=== PATIENT | male | born 1960 | race Caucasian/White ===

== ENCOUNTER → 2018-01-14 13:16 | Outpatient (BNVA) | payer MEDICARE, MEDICAID, SELFPAY | PROVIDERS: PCP Nurse Practitioner Family; Visit Provider Psychiatry & Neurology Neurology | DX: G40.919 Epilepsy, unspecified, intractable, without status epilepticus (principal) | CPT/HCPCS: 99213 ==

== ENCOUNTER 2018-02-03 00:28 | Outpatient (CLI) | payer MEDICARE, MEDICAID, SELFPAY ==
--- NOTE | 2018-02-03 14:37 | DI.RAD_ITS ---
SYMPTOMS/DIAGNOSIS: OSTEOPOROSIS, M81.0, 2-YEAR F/U S/P STARTING RECLAST TREATMENT DEXA SCAN: DEXA scan was performed according to the usual protocol. The findings for lumbar spine scanning are a T score of -3.7. Previous scan of September 2015 showed lumbar spine T score of -4.5. The left hip scanning shows a T score of -2.6 with left femoral neck T score of -3.1. Previous scan of September 2015 showed left hip T score of -3.0. Left forearm scanning shows a T score of -2.1. Previous exam of 09/2015 showed a T score of -1.9. CONCLUSION: Findings consistent with osteoporosis according to the WHO criteria. The lateral vertebral scanogram shows no evidence of a vertebral compression fracture.
== END 2018-02-03 00:48 ==
PROVIDERS: PCP Nurse Practitioner Family; Visit Provider Nurse Practitioner Family
DX: M81.0 Age-related osteoporosis without current pathological fracture (principal); Z79.899 Other long term (current) drug therapy
CPT/HCPCS: 77080

== ENCOUNTER → 2018-05-26 13:19 | Outpatient (BNVA) | payer MEDICARE, MEDICAID, SELFPAY | PROVIDERS: PCP Nurse Practitioner Family; Visit Provider Psychiatry & Neurology Neurology | DX: G40.919 Epilepsy, unspecified, intractable, without status epilepticus (principal) | CPT/HCPCS: 99213 ==

== ENCOUNTER 2018-06-29 01:20 | Outpatient (RCR) | payer MEDICARE, MEDICAID, SELFPAY ==
[2018-06-29] MEDS: Normal Saline Flush 10 ML SYR IVP (14:17)
== END 2018-07-02 23:59 | disposition home or self-care (01) ==
LOC: INF 01:20
PROVIDERS: PCP Nurse Practitioner Family; Visit Provider Nurse Practitioner Family
DX: M81.0 Age-related osteoporosis without current pathological fracture (principal)
CPT/HCPCS: 96365; J3489

== ENCOUNTER 2018-08-19 09:44 | Outpatient (CLI) | payer MEDICARE, MEDICAID, SELFPAY ==
[2018-08-19 11:17] LABS: Hemoglobin A1C 5.5 % (4.5-6.2)
[2018-08-19 12:06] LABS: ALT 22 U/L (12-78); AST 11 U/L (15-37); Albumin 4.2 g/dL (3.4-5.0); Alkaline Phosphatase 65 U/L (46-116); Anion Gap 12.6 mmol/L (3-11); BUN 18 mg/dL (7-18); Bilirubin, Total 0.4 mg/dL (0.2-1.0); CO2 24.4 mmol/L (21.0-32.0); CREATININE 1.21 mg/dL (0.70-1.30); Chloride 105 mmol/L (98-107); Cholesterol 188 mg/dL (50-200); Glucose 105 mg/dL (70-100); HDL Cholesterol 69 mg/dL (40-60); LDL CHOLESTEROL 104 mg/dL (<100); Potassium 3.9 mmol/L (3.5-5.1); Sodium 142 mmol/L (136-145); TSH (W/Ref FT4) 3.56 uIU/mL (0.358-3.74); Total Protein 7.3 g/dL (6.4-8.2); Triglyceride 52 mg/dL (30-150)
== END 2018-08-19 10:04 ==
PROVIDERS: PCP Nurse Practitioner Family; Visit Provider Nurse Practitioner Family
DX: E03.9 Hypothyroidism, unspecified (principal); R73.01 Impaired fasting glucose; E78.5 Hyperlipidemia, unspecified; Z79.899 Other long term (current) drug therapy
CPT/HCPCS: 36415; 80053; 80061; 83721; 83036; 84443

== ENCOUNTER 2019-04-16 19:29 | Emergency (ER) | payer MEDICARE, MEDICAID, SELFPAY ==
[2019-04-16 19:35] VITALS: BP 167/78; PULSE 108; RESP 19; TEMP 37.8; O2SAT 97
[2019-04-16 19:37] VITALS: BP 122/75; PULSE 92; RESP 18; TEMP 36.6; O2SAT 97
--- NOTE | 2019-04-16 20:00 | ED.GENADUL_ITS ---
Discharge Plan Disposition Patient Disposition: HOME Condition: Fair Discharge Details Chief Complaint: PsychEval Clinical Impression: UTI (urinary tract infection) Primary Care Provider: Sis Roman ED Provider: Monica Ribera Home Meds and New Rx's Prescriptions: New sulfamethoxazole-trimethoprim [Bactrim DS] 800-160 mg tablet 1 tab PO BID Qty: 6 RF: 0 Continued albuterol sulfate 90 mcg/actuation HFA aerosol inhaler 1 - 2 puff IH Q4H PRN (Reason: shortness of breath or wheezing) Qty: 1 RF: 0 Spacer 1 unit miscellaneous .Q4-6H PRN (Reason: To use with inhaler) Qty: 1 RF: 0 lamotrigine 100 mg tablet 100 mg PO DIRECTED Qty: 270 RF: 3 zonisamide 100 mg capsule 300 mg PO HS Qty: 270 RF: 3 citalopram [Celexa] 40 MG tablet 30 mg PO DAILY RF: 0 ibuprofen 200 MG capsule 200 mg PO PRN RF: 0 acetaminophen 325 MG tablet 325 mg PO PRN PRNQty: 2 RF: 0 Buspirone HCl 5 MG tablet 5 mg PO BID RF: 0 (DME) Disposable Brief Jumbo X-Large 1 EACH misc 1 ea Miscellaneous BID Qty: 200 RF: 3 benzonatate 100 mg capsule 100 mg PO HS PRN (Reason: cough) Qty: 90 RF: 3 calcium carbonate-vitamin D3 [Calcium 500 With D] 500 mg(1,250mg) -400 unit tablet 1 tab PO DAILY Qty: 90 RF: 3 ESSENTIAL Daily 18-0.4 mg tablet 1 tab PO DAILY Qty: 90 RF: 3 levetiracetam 750 mg tablet 1,500 mg PO BID Qty: 360 RF: 3 Discharge Instructions Instructions: Sulfamethoxazole/Trimethoprim (By mouth), Urinary Tract Infection in Men (ED) Additional Instructions: Jose M has urinary tract infection. He will need to be treated with antibiotics. I would like for him to have close follow-up with his primary care at the beginning of the week. Please encourage hydration. Take the antibiotics as prescribed, please finish the prescription even if symptoms improve. If he develops new or worsening symptoms please seek care urgently once again. Referrals: Sis Roman, ESTHER [Primary Care Provider] - Discharge Data Discharge Date/Time-TO BE ENTERED AT DEPARTURE: 04/16/19 22:20 Medical Decision Making Patient brought in via [facility] mental health providers for AMS primarily manifesting as visual hallucinations per their report. Patient is confused. He does have cognitive delay at baseline per their report so it is diffuclt to know what is normal for the patinet. However, he is reporting that he sees bugs on the floor of the [place]. No known recent illness. He denies BONILLA, denies visual changes. No known fevers/chills. He denies abdmoinal pain, no known N/V/D. No known travel, no recent abx known. Did have break through seizure a few days ago, unclear if this is unusual for the patient. They do not believe he has had recent medication change or substance exposure. On exam, patient appears nontoxic. Patient does not give striaght answers to questions, is frequently talking about different topic, does discuss bugs that he sees on the floor. Lungs are clear, normal cardiac exam, abdomen is benign, no CVA tenderness. Patient has ulcers noted on the anterior and lateral tongue. Skin exam otherwise normal. No leasions to feet/palms. Plan for labs and UA. Unclear what is driving this new onset confusion. Discussed screening tests with [facility] patient and he is agreeable to this. Will include syphilis testing. Approximately half an hour after the patient arrived, his home care provider who is been with him for for the past 15 years, was able to come to the department. He advised that the flight of ideas is typical for the patient and that at baseline, they are unable to hold a normal conversation with him. He reports that the wounds on the tongue that appear to be ulcerations are likely associated with seizures she had in the past disease but his tongue multiple times. He does report that the patient had breakthrough seizure a few days ago and that this was worse than his typical seizures. They have not noted the patient to be ill. No fevers or chills. Reports that symptoms began mildly yesterday slight increase in confusion and seeing bugs with symptoms maximizing today. Reports that the patient has appeared slightly off balance has been more animated than typical. Hallucinations are new. Patient is picking frequently at things, I am concerned that he will not tolerate an IV without sedation which I do not think is needed at this point. Plan for straight stick and UA. Do not feel that imaging is necessary at this point. Labs reviewed. Leukocytosis with WBC of 14.59. Lactate normal. TSH normal. Patient is nitrite positive, many bacteria. Likely the UTI is driving the leukocytosis and confusion. Patient denies dysurea but it is unclear if he is able to express this at baseline. Patient is eating and drinking here. Patient does reside with home care providers. He is taking oral intake well and appears nontoxic. He has no CVA tenderness on exam. Discussed disposition at length with patients home care provider. We discussed +/- of inpatient treatment. As he is nontoxic at this time, I feel that outpatient treatment is possible. I am concerned that inpatient treatment may exacerbate his underlying disorders and home care provider agrees with this. Home care provider agrees with outpatient management at this point with strict return precautions and close f/u. Patient will be started on oral Bactrim. Given strict return precautions. All of their questions and concerns were addressed in agreement this plan. HPI General Mode of arrival: ambulatory . Date/Time Provider Initiated Documentation: 04/16/19 19:30 . Limitations to Documentation: altered mental status . Information obtained by: patient, RN/MD (mental health providers with patient) and RN notes reviewed . HPI Narrative: Patient is a 58 year old male with hx of encephalopathy, UTI, epilepsy, hypothyroidism, hyperlipidemia, CP, brought in by [facility] mental health providers, with c/c of AMS with visual hallucinations. States that they were called today by home care providers when the patients was not acting as he typically does. Neither of the mental health providers have met the patient prior to this evening but they state that at home he was seeing bugs that are not present and has had increased confusion. They report he had a break through seizure a few days ago. Patient denies pain. History is very limited based on patients current mental status. Related Data Home Medications Medication Instructions Recorded Confirmed citalopram [Celexa] 30 mg PO DAILY tab-cap 07/14/12 04/17/19 ibuprofen 200 mg PO PRN 07/14/12 04/17/19 acetaminophen 325 mg PO PRN PRN #2 05/26/13 04/17/19 Buspirone HCl 5 mg PO BID tab-cap 06/13/17 10/30/18 Disposable Brief Adriel MontesLarge #200 ea 12/12/17 10/30/18 lamotrigine 100 mg tablet 100 mg PO DIRECTED #270 tab 01/14/18 04/17/19 zonisamide 100 mg capsule 300 mg PO HS #270 cap 05/26/18 04/17/19 Spacer 1 unit MISCELLANEOUS .Q4-6H PRN #1 10/30/18 10/30/18 unit albuterol sulfate 90 mcg/actuation 1 - 2 puff IH Q4H PRN #1 device 10/30/18 04/17/19 aerosol inhaler benzonatate 100 mg capsule 100 mg PO HS PRN #90 tab-cap 12/17/18 04/17/19 calcium carbonate 500 mg (1,250 1 tab PO DAILY #90 tab-cap 12/17/18 04/17/19 mg)-vitamin D3 400 unit tablet levetiracetam 750 mg tablet 1,500 mg PO BID #360 tab 01/20/19 04/17/19 lcriyqxbgxal-Ih-vjkd-minerals 18 1 tab PO DAILY #90 tab-cap 01/20/19 04/17/19 mg-0.4 mg tablet sulfamethoxazole-trimethoprim 1 tab PO BID #6 tab 04/16/19 04/17/19 [Bactrim DS] Previous Rx's Medication Instructions Recorded Disposable Brief Adriel Adan #200 ea 12/12/17 lamotrigine 100 mg tablet 100 mg PO DIRECTED #270 tab 01/14/18 zonisamide 100 mg capsule 300 mg PO HS #270 cap 05/26/18 Spacer 1 unit MISCELLANEOUS .Q4-6H PRN #1 10/30/18 unit albuterol sulfate 90 mcg/actuation 1 - 2 puff IH Q4H PRN #1 device 10/30/18 aerosol inhaler benzonatate 100 mg capsule 100 mg PO HS PRN #90 tab-cap 12/17/18 calcium carbonate 500 mg (1,250 1 tab PO DAILY #90 tab-cap 12/17/18 mg)-vitamin D3 400 unit tablet levetiracetam 750 mg tablet 1,500 mg PO BID #360 tab 01/20/19 xztwlydokvmj-Sq-gtkr-minerals 18 1 tab PO DAILY #90 tab-cap 01/20/19 mg-0.4 mg tablet sulfamethoxazole-trimethoprim 1 tab PO BID #6 tab 04/16/19 [Bactrim DS] Allergies Allergy/AdvReac Type Severity Reaction Status Date / Time Penicillins Allergy Mild Unverified 04/17/19 08:11 pseudoephedrine Allergy Mild Unverified 04/17/19 08:11 PHENOBARBITOL Allergy Intermediate PT. GETS Uncoded 04/17/19 08:11 AGITATED General Stated Complaint: PsychEval KARENA: 2 Review of Systems Unobtainable due to mental status [facility] Social History Smoking/Tobacco Use Status: Never Alcohol Intake: never Drug use: Never Substance use type: does not use Caregiver/Support person: Yes (Mane) Household members: other Details: Caregiver, caregiver's , daughter, grandchild Pets and animals: Yes Pets and animals: dog(s) What type of physical activity do you participate in: other Details: Stairs Frequency: daily Seatbelt use: always Water heater temp set <120 deg: Yes Working smoke detector in home: Yes Fire extinguisher in home: Yes Carbon monox detector in home: Yes Firearms in home: No Do you feel safe at home: Yes Do you feel safe in your relationship?: Yes Additional Social history: He is on disability. He lives with his caregiver Milena Presley (Zanna) (since early ? longer?). Shipyard Helper is Denis Melara. No smoking, ETOH, or illicit drug use. Exam Const General: cooperative, healthy appearing (appears nontoxic), comfortable and no acute distress Nutritional Appearance: average body habitus and well nourished Orientation: alert, awake and confused [facility] Head: normal to inspection, normocephalic and atraumatic Ears: hearing grossly normal bilaterally, external ears normal and TM's normal bilaterally General nose exam: external nose normal and nares normal Face and sinus: normal facial exam, sinuses nontender and face symmetric Mouth: oral mucosae normal, lip normal, tongue normal, oropharynx normal and moist mucous membranes Teeth and gingiva: dentition normal Throat: posterior oropharynx normal, tonsils normal and uvula midline Eyes General: appearance normal, both eyes and all related structures Neck Neck: normal visual inspection, full ROM, no lymphadenopathy and no meningeal signs Resp Effort & Inspection: normal respiratory effort, able to speak in complete sentences and no respiratory distress Auscultation: clear to auscultation bilaterally, no rales, no rhonchi and no wheezes Cardio Rate: regular rate Rhythm: regular rhythm Heart Sounds: S1 normal and S2 normal GI Inspection: normal to inspection Palpation: soft and nontender Back/Spine/Pelvis Back: no CVA tenderness Skin General skin exam: no rashes or lesions noted Neuro General: alert, awake, no meningeal signs and no focal motor deficits Speech: speech normal Gait: normal gait Psych Appearance: grossly normal and well kempt Mental Status: other (patient is confused) Mood: congruent mood and other (patient is confused) Affect: normal affect Attitude: cooperative Thought Process: flight of ideas and illogical Thought Content: hallucinations visual (bugs on the floor) Insight: poor Judgment: poor Course Vital Signs Vital signs: Vital Signs Temperature 37.8 C H 04/16/19 19:35 Pulse 108 H 04/16/19 19:35 Respiratory Rate 19 04/16/19 19:35 Blood Pressure 167/78 H 04/16/19 19:35 Pulse Oximetry 97 04/16/19 19:35 Temperature 37.8 C H 04/16/19 19:35 Pulse 108 H 04/16/19 19:35 Respiratory Rate 19 04/16/19 19:35 Blood Pressure 167/78 H 04/16/19 19:35 Blood Pressure Position Sitting 04/16/19 19:35 Pulse Oximetry 97 04/16/19 19:35 Oxygen Delivery Method Room Air 04/16/19 19:35 Oxygen Flow Rate 0 04/16/19 19:35 Pain Level 0 04/16/19 19:35
[2019-04-16 20:24] LABS: Abs Immature Grans 0.03 k/cumm (0.0-0.09); Absolute Eosinophil Count 0.09 k/cumm (0.0-0.7); Absolute Lymphocyte Count 2.64 k/cumm (1.2-3.4); Absolute Monocyte Count 1.33 k/cumm (0.11-0.7); Basophils % 0.3; Eosinophils % 0.6; HCT 39.6 % (40.0-50.0); HGB 13.4 g/dL (13.5-17.5); Immature Grans % 0.2; Lymphocytes % 18.1; Mean Corp. HGB Concentration 33.8 g/dL (32.0-36.0); Mean Corpuscular Hemoglobin 29.1 pg (27.0-33.0); Mean Corpuscular Volume 86.1 fL (80-95); Mean Platelet Volume 8.8 fL (8.0-11.0); Monocytes % 9.1; Neutrophils % 71.7; Platelet Count 441 x1000/uL (130-400); RBC Distribution Width 13.7 % (11.8-14.1); White Blood Cell Count 14.59 k/cumm (4.4-10.8)
[2019-04-16 20:25] LABS: Absolute Basophil Count 0.04 k/cumm (0.0-0.2); Absolute Neutrophil Count 10.46 k/cumm (1.2-6.7)
[2019-04-16 20:46] LABS: ALT 27 U/L (16-63); AST 27 U/L (15-37); Albumin 4.4 g/dL (3.4-5.0); Alkaline Phosphatase 70 U/L (46-116); Anion Gap 8.6 mmol/L (3-11); BUN 21 mg/dL (7-18); Bilirubin, Total 0.6 mg/dL (0.2-1.0); CO2 23.4 mmol/L (21.0-32.0); CREATININE 1.22 mg/dL (0.70-1.30); Calcium 9.5 mg/dL (8.5-10.1); Chloride 98 mmol/L (98-107); Glucose 148 mg/dL (74-106); Potassium 3.3 mmol/L (3.5-5.1); Sodium 130 mmol/L (136-145); TSH 1.37 uIU/mL (0.36-3.74); Total Protein 7.6 g/dL (6.4-8.2)
[2019-04-16 21:06] LABS: Salicylate < 2.8 mg/dL (2.8-20.0)
[2019-04-16 21:07] LABS: Acetaminophen < 2 ug/mL (10-30)
[2019-04-16 21:20] LABS: ETHANOL BLOOD < 3.0 mg/dL (<3)
[2019-04-16 21:25] LABS: Bilirubin Negative (Negative); Blood Moderate (Negative); Clarity Sl Cloudy (Clear); Glucose Negative (Negative); Ketones 40 mg/dL (Negative); Leukocyte Esterase Trace (Negative); Nitrite Positive (Negative); Specific Gravity >= 1.030 (1.005-1.025); Urobilinogen 0.2 EU/dL (Up TO 0.2)
[2019-04-16 21:25] LABS: Lactate 1.1 mmol/L (0.6-1.4)
[2019-04-16 21:39] LABS: Bacteria Many HPF (Negative); Crystals Many Calcium Oxalate HPF (Negative); Epithelial Cells Negative HPF (Negative); Mucus Negative (Negative); RBC 0-2 HPF (0-2); WBC 20-50 HPF (0-5)
[2019-04-16 21:40] LABS: C & S Indicated? Yes; Casts Negative LPF (Negative)
[2019-04-16 21:42] LABS: *AMPHETAMINES SCREEN URINE Negative (Negative); *BARBITURATES SCREEN URINE Negative (Negative); *BENZODIAZEPINES SCREEN URINE Negative (Negative); Cannabinoids THC Negative (Negative); Cocaine Screen,Urine Negative (Negative); METHADONE URINE SCREEN Negative (Negative); OPIATES URINE SCREEN Negative (Negative)
[2019-04-16 21:44] LABS: Tricyclic Antidepressants Negative (Negative)
[2019-04-19 10:43] LABS: Syphilis Serology (RPR) Negative (Negative)
== END 2019-04-16 22:20 | disposition home or self-care (01) ==
PROVIDERS: Emergency Provider Physician Assistant; PCP Nurse Practitioner Family
DX: N39.0 Urinary tract infection, site not specified (principal); B96.1 Klebsiella pneumoniae [K. pneumoniae] as the cause of diseases classified elsewhere
CPT/HCPCS: 36415; 80053; 80307; 87077; 99283; 80320; 80329; 81003; 81015; 83605; 84443; 85025; 86592; 87086; 87186

== ENCOUNTER 2019-04-17 08:02 | Observation (INO) | payer MEDICARE, MEDICAID, SELFPAY ==
[2019-04-17] VITALS (18 sets, daily range): BP systolic 124–134; BP diastolic 36–89; PULSE 71–113; RESP 13–25; TEMP 36.9–37.8; O2SAT 91–99
--- NOTE | 2019-04-17 08:30 | ED.GENADUL_ITS ---
Discharge Plan Disposition Patient Disposition: [facility] INPATIENT Condition: Stable Discharge Details Chief Complaint: GenMedical Clinical Impression: Hallucinations, UTI (urinary tract infection), Fever, Gait instability Admit Date/Time: 04/17/19 11:00 Admit Provider: Vineet Obrien Attending Provider: Vineet Obrien Primary Care Provider: Sis Roman ED Provider: Raysa Lopez Discharge Data Discharge Date/Time-TO BE ENTERED AT DEPARTURE: 04/17/19 11:50 Medical Decision Making 0815 -- 58yo M w/ a h/o developmental delay and cerebral palsy here yesterday in the ED for hallucinations and diagnosed with UTI and sent home with bactrim presents with worsening hallucinations and increasing unsteadiness. Caregiver states that her who brought patient in last night was offered admission but preferred to take him home at that time. She is stating she thinks he needs admission today. Oral temp on arrival 100. Rectal temp 99.9. Heart rate 110s. Normal blood pressure, respiratory rate and oxygen saturation. He appears flushed and mildly diaphoretic and skin warm to touch. He is able to answer some questions and follow some commands. Lungs clear. Abdomen soft and nontender. He is complaining of lower back pain and back normal to inspection. He has an abrasion to his forehead and left thigh. No orthopedic deformity. No obvious focal deficits. Differential diagnosis includes pneumonia, UTI, fracture, dehydration, electrolyte abnormality, arrhythmia, ACS. It appears at this time that likely a medical causes contributing to the hallucinations, but will likely plan for admission here overnight and continue to monitor if there is an underlying psych component. Patient has 1 kidney but with normal kidney function. Smaller dose of IV contrast given. 1030 --labs and imaging reviewed. White blood cell count 13. Electrolytes within normal limits. Lactate 1.5. Troponin negative. Urinalysis notes UTI. CT head, C/T/L-spine negative. CT chest notes questionable rib fracture but movement limits exam. CT abdomen negative for acute findings. 1100 --Case discussed with hospitalist -accepts patient for admission. Will treat UTI with Levaquin as he is allergic to penicillin. Medical Records Medical records reviewed: Yes I reviewed the patient's medical records. Imaging Data Radiologic Study: Radiologist's impression: CT Chest With Contrast Exam date and time: 04/17/2019 8:30 AM Age: 58 years old Clinical history: S/P fall, fever, R/O pneumonia/pyelonephritis TECHNIQUE: Imaging protocol: Computed tomography of the chest with intravenous contrast. Radiation optimization: All CT scans at this facility use at least one of these dose optimization techniques: automated exposure control; mA and/or kV adjustment per patient size (includes targeted exams where dose is matched to clinical indication); or iterative reconstruction. COMPARISON: XR CHEST 03/27/2017 FINDINGS: Limitations: The study is technically limited by breathing motion artifact. Lungs: There is bilateral dependent atelectasis. Pleural space: No pleural effusion or pneumothorax. Heart: The heart is not enlarged. No pericardial effusion. Pulmonary arteries: No pulmonary embolism. Aorta: No thoracic aortic aneurysm or dissection. Great vessels off aortic arch: No major aortic branch vessel stenosis or occlusion. Lymph nodes: No pathologically enlarged lymph nodes. Bones/joints: Multiple bilateral old, healed rib fractures. Cannot exclude an acute rib or sternal fracture due to the motion artifact. Multilevel bridging osteophytes in the thoracic spine. Soft tissues: No acute soft tissue abnormality. IMPRESSION: 1. Bilateral atelectasis. No pneumonia otherwise. 2. Cannot exclude a nondisplaced fracture given technical limitations. CT Abdomen And Pelvis With Contrast Exam date and time: 04/17/2019 8:30 AM Age: 58 years old Clinical history: S/P fall, fever, R/O pneumonia/pyelonephritis TECHNIQUE: Imaging protocol: Computed tomography of the abdomen and pelvis with intravenous contrast. Radiation optimization: All CT scans at this facility use at least one of these dose optimization techniques: automated exposure control; mA and/or kV adjustment per patient size (includes targeted exams where dose is matched to clinical indication); or iterative reconstruction. COMPARISON: XR ABDOMEN 05/15/2016 FINDINGS: Limitations: The study is technically limited by breathing motion artifact. Liver: The liver is not enlarged. There are hepatic cyst. Gallbladder and bile ducts: No calcified gallstones, gallbladder wall thickening, or pericholecystic inflammation. No biliary ductal dilation. Pancreas: No pancreatic mass. No peripancreatic inflammation. No pancreatic ductal dilation. Spleen: The spleen is homogeneous and is not enlarged. Adrenals: The left adrenal gland is normal. There is an 11 mm right adrenal nodule with nonspecific attenuation measurements. Kidneys and ureters: The right kidney appears absent. No left hydronephrosis allowing for parapelvic cyst formation. The left renal parenchyma is difficult to evaluate due to motion artifact, but no obvious acute parenchymal abnormality. No perirenal fluid. Stomach and bowel: No bowel obstruction, colitis or diverticulitis. Appendix: Prior appendectomy. Intraperitoneal space: No ascites or pneumoperitoneum. Vasculature: No abdominal aortic aneurysm. No iliac or common femoral artery aneurysm. The mesenteric arteries are patent. The mesenteric, portal, and hepatic veins are patent. There is a circumaortic left renal vein. Lymph nodes: No enlarged lymph nodes. Bladder: The urinary bladder is small in volume. No bladder calculus. Reproductive: Unremarkable as visualized. Bones/joints: No acute osseous abnormality. Hemangioma in the left sacrum. Soft tissues: Tiny umbilical hernia containing fat. IMPRESSION: 1. Absent right kidney. 2. Technically limited exam, but no definite acute abnormality with left kidney. 3. Right adrenal nodule. CT Head Without Contrast Exam date and time: 04/17/2019 9:36 AM Age: 58 years old Clinical history: Other: S/P fall, fever, R/O pneumonia/pyelonephritis TECHNIQUE: Imaging protocol: Computed tomography of the head without contrast. Radiation optimization: All CT scans at this facility use at least one of these dose optimization techniques: automated exposure control; mA and/or kV adjustment per patient size (includes targeted exams where dose is matched to clinical indication); or iterative reconstruction. COMPARISON: CT HEAD WITHOUT CONTRAST 07/21/2015 11:30 AM FINDINGS: Limitations: Beam hardening artifact. Brain: No acute brain parenchymal abnormality. No intracranial hemorrhage. No extraaxial fluid collections. There is mild diffuse cerebral atrophy. There are mild white matter low attenuation changes in both cerebral hemispheres likely related to chronic small vessel disease. Ventricles: No hydrocephalus. Bones/joints: No calvarial fracture. Sinuses: The visualized paranasal sinuses are aerated. Mastoid air cells: The visualized mastoid air cells are aerated. Soft tissues: No acute soft tissue abnormality. IMPRESSION: No acute intracranial abnormality. CT Cervical Spine Without Contrast Exam date and time: 04/17/2019 9:36 AM Age: 58 years old Clinical history: Other: S/P fall, fever, R/O pneumonia/pyelonephritis TECHNIQUE: Imaging protocol: Computed tomography images of the cervical spine without contrast. Radiation optimization: All CT scans at this facility use at least one of these dose optimization techniques: automated exposure control; mA and/or kV adjustment per patient size (includes targeted exams where dose is matched to clinical indication); or iterative reconstruction. COMPARISON: CT HEAD WITHOUT CONTRAST 07/21/2015 11:30 AM FINDINGS: Limitations: The study is technically limited by motion artifact. Vertebrae: There is a curvature of the cervical spine convex to the right. The cervical vertebral bodies maintain height and sagittal alignment, though there is partial congenital fusion between the C7 and T1 segments. The facets align normally. The atlantodens interval is not widened. Craniocervical junction is maintained. No acute fracture. Discs/Spinal canal/Neural foramina: Minimal multilevel disc and uncovertebral joint degeneration. No osseous spinal stenosis. Soft tissues: Unremarkable. Lungs: Lung apices are normal. IMPRESSION: No acute osseous abnormality. CT Thoracic Spine Without Contrast Exam date and time: 04/17/2019 8:30 AM Age: 58 years old Clinical history: Other: S/P fall, fever, R/O pneumonia/pyelonephritis TECHNIQUE: Imaging protocol: Computed tomography images of the thoracic spine without contrast. Radiation optimization: All CT scans at this facility use at least one of these dose optimization techniques: automated exposure control; mA and/or kV adjustment per patient size (includes targeted exams where dose is matched to clinical indication); or iterative reconstruction. COMPARISON: No relevant prior studies available. FINDINGS: Vertebrae: The lumbar vertebral bodies maintain height and alignment. The facets align normally. No acute fracture. There is a hemangioma in the T12 vertebral body. Discs/Spinal canal/Neural foramina: There is multilevel disc degeneration. Soft tissues: No paraspinal hematoma. IMPRESSION: No acute osseous abnormality. CT Lumbar Spine Without Contrast Exam date and time: 04/17/2019 8:30 AM Age: 58 years old Clinical history: Other: S/P fall, fever, R/O pneumonia/pyelonephritis TECHNIQUE: Imaging protocol: Computed tomography images of the lumbar spine without contrast. Radiation optimization: All CT scans at this facility use at least one of these dose optimization techniques: automated exposure control; mA and/or kV adjustment per patient size (includes targeted exams where dose is matched to clinical indication); or iterative reconstruction. COMPARISON: No relevant prior studies available. FINDINGS: Vertebrae: The lumbar vertebral bodies maintain height and alignment. The facets align normally. No acute fracture. Discs/Spinal canal/Neural foramina: There is multilevel disc degeneration. Soft tissues: No paraspinal hematoma. IMPRESSION: No acute osseous abnormality. Lab Data Lab results reviewed: Yes I reviewed the patient's lab results. Labs: 04/17/19 09:22 Blood Blood Culture - Pending 04/17/19 09:30 Urine - Reflex from Ua Urine Culture - Pending 04/17/19 09:22 Blood Blood Culture - Pending Laboratory Tests Range/Units 04/17/19 04/17/19 04/17/19 08:40 08:40 08:40 WBC (4.4-10.8) k/cumm RBC (4.50-6.00) m/cumm Hgb (13.5-17.5) g/dL Hct (40.0-50.0) % MCV (80-95) fL MCH (27.0-33.0) pg MCHC (32.0-36.0) g/dL RDW (11.8-14.1) % Plt Count (130-400) x1000/uL MPV (8.0-11.0) fL Immature Gran % Neutrophils % Lymphocytes % Monocytes % Eosinophils % Basophils % Absolute Neutrophils (1.2-6.7) k/cumm Absolute Lymphocytes (1.2-3.4) k/cumm Absolute Monocytes (0.11-0.7) k/cumm Absolute Eosinophils (0.0-0.7) k/cumm Absolute Basophils (0.0-0.2) k/cumm Sodium (136-145) mmol/L 143 D Potassium (3.5-5.1) mmol/L 3.5 Chloride (98-107) mmol/L 105 Carbon Dioxide (21.0-32.0) mmol/L 24.8 Anion Gap (3-11) mmol/L 13.2 H BUN (7-18) mg/dL 21 H Creatinine (0.70-1.30) mg/dL 1.29 Estimated GFR/1.73 m2 (mL/min/1.73m2) 57.21 Glucose (74-106) mg/dL 135 H Lactate (0.6-1.4) mmol/L 1.5 H Calcium (8.5-10.1) mg/dL 9.4 Magnesium (1.8-2.4) mg/dL 1.9 Total Bilirubin (0.2-1.0) mg/dL 0.7 AST (15-37) U/L 30 ALT (16-63) U/L 29 Alkaline Phosphatase (46-116) U/L 68 Troponin I (<0.06) ng/Ml < 0.05 Total Protein (6.4-8.2) g/dL 7.7 Albumin (3.4-5.0) g/dL 4.4 Lipase (73-393) U/L 142 Urine Color (Yellow) Urine Clarity (Clear) Urine pH (5-8) Ur Specific [place] (1.005-1.025) Urine Protein (Negative) mg/dL Urine Ketones (Negative) mg/dL Urine Blood (Negative) Urine Nitrite (Negative) Urine Bilirubin (Negative) Urine Urobilinogen (Up TO 0.2) EU/dL Ur Leukocyte Esterase (Negative) Urine RBC (0-2) HPF Urine WBC (0-5) HPF Ur Epithelial Cells (Negative) HPF Urine Crystals (Negative) HPF Urine Bacteria (Negative) HPF Urine Mucus (Negative) Ur Culture Indicated? Urine Glucose (Negative) mg/dL Total Valproic Acid (50-100) ug/mL Range/Units 04/17/19 04/17/19 04/17/19 08:40 08:40 09:30 WBC (4.4-10.8) k/cumm 13.65 H RBC (4.50-6.00) m/cumm 4.55 Hgb (13.5-17.5) g/dL 13.6 Hct (40.0-50.0) % 39.3 L MCV (80-95) fL 86.4 MCH (27.0-33.0) pg 29.9 MCHC (32.0-36.0) g/dL 34.6 RDW (11.8-14.1) % 13.7 Plt Count (130-400) x1000/uL 434 H MPV (8.0-11.0) fL 8.8 Immature Gran % 0.1 Neutrophils % 77.2 Lymphocytes % 14.1 Monocytes % 8.0 Eosinophils % 0.2 Basophils % 0.4 Absolute Neutrophils (1.2-6.7) k/cumm 10.54 H Absolute Lymphocytes (1.2-3.4) k/cumm 1.92 Absolute Monocytes (0.11-0.7) k/cumm 1.09 H Absolute Eosinophils (0.0-0.7) k/cumm 0.03 Absolute Basophils (0.0-0.2) k/cumm 0.05 Sodium (136-145) mmol/L Potassium (3.5-5.1) mmol/L Chloride (98-107) mmol/L Carbon Dioxide (21.0-32.0) mmol/L Anion Gap (3-11) mmol/L BUN (7-18) mg/dL Creatinine (0.70-1.30) mg/dL Estimated GFR/1.73 m2 (mL/min/1.73m2) Glucose (74-106) mg/dL Lactate (0.6-1.4) mmol/L Calcium (8.5-10.1) mg/dL Magnesium (1.8-2.4) mg/dL Total Bilirubin (0.2-1.0) mg/dL AST (15-37) U/L ALT (16-63) U/L Alkaline Phosphatase (46-116) U/L Troponin I (<0.06) ng/Ml Total Protein (6.4-8.2) g/dL Albumin (3.4-5.0) g/dL Lipase (73-393) U/L Urine Color (Yellow) Yellow Urine Clarity (Clear) Sl cloudy Urine pH (5-8) 6.0 Ur Specific [place] (1.005-1.025) >= 1.030 H Urine Protein (Negative) mg/dL 30 H Urine Ketones (Negative) mg/dL 40 H Urine Blood (Negative) Moderate H Urine Nitrite (Negative) Negative Urine Bilirubin (Negative) Small H Urine Urobilinogen (Up TO 0.2) EU/dL 0.2 Ur Leukocyte Esterase (Negative) Small H Urine RBC (0-2) HPF 20-50 H Urine WBC (0-5) HPF >50 H Ur Epithelial Cells (Negative) HPF Few Urine Crystals (Negative) HPF Negative Urine Bacteria (Negative) HPF Moderate Urine Mucus (Negative) Trace Ur Culture Indicated? Yes Urine Glucose (Negative) mg/dL Negative Total Valproic Acid (50-100) ug/mL < 3 L ECG Data Attestation: I personally reviewed and interpreted this ECG (s) as follows: Interpretation: Rate of 104, sinus, no acute ST elevation or depression. VT 124. QTc 463. QRS 98. HPI General Mode of arrival: ambulatory . Date/Time Provider Initiated Documentation: 04/17/19 08:05 . Limitations to Documentation: altered mental status and physical limitation . 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 HPI Narrative: Patient is a 58-year-old male with a history of developmental delay and cerebral palsy who presented here yesterday for hallucinations and russell gnosed with UTI who returns today with worsening symptoms. Caregiver whom patient has lived with for the past 15 years states that since yesterday he has been hallucinating that he is seeing ants on the floor, pulling strings out of his mouth, talking to people or people that are not there and seeing things that are not there. She states it appears that he fell in the night as he has a new abrasion to his forehead and bruises on his left thigh. Patient is complaining of back pain. She states she was unaware of a fever. He took his dose of Bactrim last night as well as this morning. At baseline he is able to verbalize where he has pain, feed himself on his own and ambulate on his own without assistance. She states he has been more unsteady since yesterday and falling and bumping into things. Related Data Home Medications Medication Instructions Recorded Confirmed citalopram [Celexa] 30 mg PO DAILY tab-cap 07/14/12 04/17/19 ibuprofen 200 mg PO PRN 07/14/12 04/17/19 acetaminophen 325 mg PO PRN PRN #2 05/26/13 04/17/19 Buspirone HCl 5 mg PO BID tab-cap 06/13/17 10/30/18 Disposable Brief Elenitao X-Large #200 ea 12/12/17 10/30/18 lamotrigine 100 mg tablet 100 mg PO DIRECTED #270 tab 01/14/18 04/17/19 zonisamide 100 mg capsule 300 mg PO HS #270 cap 05/26/18 04/17/19 Spacer 1 unit MISCELLANEOUS .Q4-6H PRN #1 10/30/18 10/30/18 unit albuterol sulfate 90 mcg/actuation 1 - 2 puff IH Q4H PRN #1 device 10/30/18 04/17/19 aerosol inhaler benzonatate 100 mg capsule 100 mg PO HS PRN #90 tab-cap 12/17/18 04/17/19 calcium carbonate 500 mg (1,250 1 tab PO DAILY #90 tab-cap 12/17/18 04/17/19 mg)-vitamin D3 400 unit tablet levetiracetam 750 mg tablet 1,500 mg PO BID #360 tab 01/20/19 04/17/19 fygbdmgetgjc-Ky-suqe-minerals 18 1 tab PO DAILY #90 tab-cap 01/20/19 04/17/19 mg-0.4 mg tablet sulfamethoxazole-trimethoprim 1 tab PO BID #6 tab 04/16/19 04/17/19 [Bactrim DS] Previous Rx's Medication Instructions Recorded Disposable Brief Adriel Alvarado-Jose #200 ea 12/12/17 lamotrigine 100 mg tablet 100 mg PO DIRECTED #270 tab 01/14/18 zonisamide 100 mg capsule 300 mg PO HS #270 cap 05/26/18 Spacer 1 unit MISCELLANEOUS .Q4-6H PRN #1 10/30/18 unit albuterol sulfate 90 mcg/actuation 1 - 2 puff IH Q4H PRN #1 device 10/30/18 aerosol inhaler benzonatate 100 mg capsule 100 mg PO HS PRN #90 tab-cap 12/17/18 calcium carbonate 500 mg (1,250 1 tab PO DAILY #90 tab-cap 12/17/18 mg)-vitamin D3 400 unit tablet levetiracetam 750 mg tablet 1,500 mg PO BID #360 tab 01/20/19 vjcgafavkfct-Pn-xqgf-minerals 18 1 tab PO DAILY #90 tab-cap 01/20/19 mg-0.4 mg tablet sulfamethoxazole-trimethoprim 1 tab PO BID #6 tab 04/16/19 [Bactrim DS] Allergies Allergy/AdvReac Type Severity Reaction Status Date / Time Penicillins Allergy Mild Unverified 04/17/19 08:11 pseudoephedrine Allergy Mild Unverified 04/17/19 08:11 PHENOBARBITOL Allergy Intermediate PT. GETS Uncoded 04/17/19 08:11 AGITATED General Stated Complaint: GenMedical KARENA: 3 Review of Systems All systems reviewed & are unremarkable except as noted in HPI and below Constitutional Constitutional: Reports as per HPI, Denies chills and Denies fever(s) Eyes Eyes: Denies blurry vision ENT Ears, Nose, Mouth, and Throat: Denies dizziness, Denies sore throat and Denies throat swelling Cardiovascular Cardiovascular: Denies chest pain and Denies dyspnea Respiratory Respiratory: Denies cough and Denies dyspnea Gastrointestinal Gastrointestinal: Denies abdominal pain, Denies diarrhea and Denies vomiting Genitourinary Genitourinary: Denies hematuria and Denies dysuria Musculoskeletal Musculoskeletal: Reports back pain and Denies numbness Integumentary/Breasts Skin/Breast: Denies lesions and Denies rash Neurologic Neurologic: Denies dizziness, Denies focal weakness and Denies numbness Allergic/Immunologic Allergic/Immunologic: Denies throat swelling [facility] Medical History Cerebral palsy (Chronic) Chronic rhinitis (Chronic 06/27/11) Epilepsy, unspecified, intractable, without status epilepticus (Chronic) Hyperlipidemia (Chronic 06/12/17) 08/2018 labs: 10-year ASCVD risk = ~5.5% --> no statin indicated at this time IFG (impaired fasting glucose) (Chronic 06/12/17) Osteoporosis (Chronic) 02/03/2018 2-year f/u DEXA (s/p starting Reclast): stable, some improvement 06/2018: Reclast infusions 2016, , & - d/c Reclast and restart PRN pending f/u DEXA scans or fractures Subclinical hypothyroidism (Chronic 11/09/15) Synovitis of knee (Resolved 08/13/13) Unspecified disorder of liver (Chronic 06/27/11) Hemangioma right lobe liver on CT 12/05/2011 Surgical History Appendectomy (Resolved) Arthroplasty of knee (Resolved) H/O elbow surgery (Chronic) Laryngoscopy w/ removal of foreign body (Resolved) Family History Sister , Melanoma Neoplasm Melanoma Sister Neoplasm Breast CA Brother No problems noted. Social History Smoking/Tobacco Use Status: Never Alcohol Intake: never Drug use: Never Substance use type: does not use Caregiver/Support person: Yes (Mane) Household members: other Details: Caregiver, caregiver's , daughter, grandchild Pets and animals: Yes Pets and animals: dog(s) What type of physical activity do you participate in: other Details: Stairs Frequency: daily Seatbelt use: always Water heater temp set <120 deg: Yes Working smoke detector in home: Yes Fire extinguisher in home: Yes Carbon monox detector in home: Yes Firearms in home: No Do you feel safe at home: Yes Do you feel safe in your relationship?: Yes Additional Social history: He is on disability. He lives with his caregiver Milena Presley (Zanna) (since early ? longer?). Dethistler Operator is Denis Melara. No smoking, ETOH, or illicit drug use. Exam Const General: cooperative and no acute distress Orientation: alert and awake HENMT Head: no palpable skull fracture and normocephalic Head images: 1. Superficial abrasion approximately 1 cm x 3 mm in middle forehead. There is no active bleeding, surrounding ecchymosis or erythema. Ears: hearing grossly normal bilaterally, external ears normal and TM's normal bilaterally General nose exam: external nose normal Face and sinus: normal facial exam Mouth: oral mucosae normal Throat: posterior oropharynx normal Eyes General: appearance normal, both eyes and all related structures Pupils: PERRL EOM: EOM intact bilaterally Neck Neck: normal visual inspection and No submandibular swelling Lymphatic: no lymphadenopathy noted Chest Chest: normal inspection of the chest and no tenderness Resp Effort & Inspection: normal respiratory effort and able to speak in complete sentences Auscultation: clear to auscultation bilaterally Cardio Rate: regular rate Rhythm: regular rhythm GI Inspection: normal to inspection Palpation: soft, not firm, not rigid and nontender Auscultation: normal bowel sounds Male General Exam: Yes normal external exam Penis: normal penis Scrotum: scrotum normal Back/Spine/Pelvis Cervical Spine: cervical spinal tenderness Thoracic/Lumbar Spine: thoracic and lumbar spine normal to inspection, No thoracic spinal tenderness and No lumbar spinal tenderness Pelvis: no pain with anterior-posterior compression Skin General skin exam: no rashes or lesions noted Neuro General: alert, awake, gait normal, moves all extremities and no focal motor deficits Speech: other (chronic slurred, developmental delay) Motor: muscle tone normal throughout Extrem General: full ROM, normal capillary refill, no calf tenderness bilaterally and n o edema Upper/lower leg/hip images: 1. Ecchymosis without open wounds. No significant tenderness to palpation or pain with range of motion. Knee images: 1. 1 x 1 cm area of ecchymosis left lateral inferior knee without pain with range of motion or deformity. Other: Full range of motion bilateral upper and lower extremities without deformity or pain with range of motion. Psych Appearance: grossly normal Mental Status: mental status grossly normal Course Vital Signs Vital signs: Vital Signs Temperature 100.0 F H 04/17/19 08:06 Pulse 111 H 04/17/19 08:06 Respiratory Rate 20 04/17/19 08:06 Blood Pressure 127/89 04/17/19 08:06 Pulse Oximetry 97 04/17/19 08:06 Temperature 99.9 F H 04/17/19 08:28 Temperature Source Rectal 04/17/19 08:28 Pulse 111 H 04/17/19 08:06 Respiratory Rate 20 04/17/19 08:06 Respiratory Effort Non-Labored 04/17/19 08:10 Blood Pressure 127/89 04/17/19 08:06 Blood Pressure Position Supine 04/17/19 08:06 Pulse Oximetry 97 04/17/19 08:06 Oxygen Delivery Method Room Air 04/17/19 08:06 Oxygen Flow Rate 0 04/17/19 08:06
[2019-04-17 08:46] LABS: Lactate 1.5 mmol/L (0.6-1.4)
[2019-04-17] MEDS: Normal Saline 1,000 ML 1000 ML IV ×2 (08:50→10:48)
[2019-04-17 08:51] LABS: Abs Immature Grans 0.02 k/cumm (0.0-0.09); Absolute Basophil Count 0.05 k/cumm (0.0-0.2); Absolute Eosinophil Count 0.03 k/cumm (0.0-0.7); Absolute Lymphocyte Count 1.92 k/cumm (1.2-3.4); Absolute Monocyte Count 1.09 k/cumm (0.11-0.7); Absolute Neutrophil Count 10.54 k/cumm (1.2-6.7); Basophils % 0.4; Eosinophils % 0.2; HCT 39.3 % (40.0-50.0); HGB 13.6 g/dL (13.5-17.5); Immature Grans % 0.1; Lymphocytes % 14.1; Mean Corp. HGB Concentration 34.6 g/dL (32.0-36.0); Mean Corpuscular Hemoglobin 29.9 pg (27.0-33.0); Mean Corpuscular Volume 86.4 fL (80-95); Mean Platelet Volume 8.8 fL (8.0-11.0); Neutrophils % 77.2; Platelet Count 434 x1000/uL (130-400); RBC 4.55 m/cumm (4.50-6.00); RBC Distribution Width 13.7 % (11.8-14.1); White Blood Cell Count 13.65 k/cumm (4.4-10.8)
[2019-04-17] MEDS: Acetaminophen 500 MG TAB 1000 MG PO (08:53)
[2019-04-17] MEDS: Normal Saline Flush 10 ML SYR IVP ×3 (08:54→18:28)
[2019-04-17 09:02] LABS: Lipase 142 U/L (73-393)
[2019-04-17 09:10] LABS: ALT 29 U/L (16-63); AST 30 U/L (15-37); Albumin 4.4 g/dL (3.4-5.0); Alkaline Phosphatase 68 U/L (46-116); Anion Gap 13.2 mmol/L (3-11); BUN 21 mg/dL (7-18); Bilirubin, Total 0.7 mg/dL (0.2-1.0); CO2 24.8 mmol/L (21.0-32.0); CREATININE 1.29 mg/dL (0.70-1.30); Calcium 9.4 mg/dL (8.5-10.1); Chloride 105 mmol/L (98-107); Estimated GFR 57.21 (mL/min/1.73m2); Glucose 135 mg/dL (74-106); Magnesium 1.9 mg/dL (1.8-2.4); Potassium 3.5 mmol/L (3.5-5.1); Sodium 143 mmol/L (136-145); Total Protein 7.7 g/dL (6.4-8.2); Troponin I < 0.05 ng/Ml (<0.06)
[2019-04-17 09:32] LABS: Bilirubin Small (Negative); Blood Moderate (Negative); Clarity Sl Cloudy (Clear); Glucose Negative (Negative); Ketones 40 mg/dL (Negative); Leukocyte Esterase Small (Negative); Nitrite Negative (Negative); Specific Gravity >= 1.030 (1.005-1.025); Urobilinogen 0.2 EU/dL (Up TO 0.2)
[2019-04-17 09:39] LABS: Epithelial Cells Few HPF (Negative); RBC 20-50 HPF (0-2)
[2019-04-17 09:40] LABS: Bacteria Moderate HPF (Negative); C & S Indicated? Yes; Crystals Negative HPF (Negative); Mucus Trace (Negative); WBC >50 HPF (0-5)
--- NOTE | 2019-04-17 09:49 | DI.CT_ITS ---
EXAM: CT CHEST/ABD/PEL W CLINICAL HISTORY: s/p fall, fever, r/o pneumonia/pyelonephritis. TECHNIQUE: Imaging Protocol: Axial computed tomography images with coronal and sagittal reformatted images were created and reviewed CONTRAST MATERIAL: Intravenous: Omnipaque 350 Contrast volume:structured data in ml Contrast route:I V - Oral: no COMPARISON: UPPER ABD WITH CONTRAST (P) from 12/05/2011 FINDINGS: CHEST: The exam is limited by patient motion. Patient was unable to follow instructions. Heart and great vessels: There is no evidence pulmonary emboli or aortic dissection. There are no pleural or pericardial effusions. Adenopathy: None. Lungs: No pulmonary nodules, mass or infiltrate. Mild dependent atelectasis. Bones: There is no evidence of acute spine or rib fracture. There are multiple bilateral old healed r ib fractures. Degenerative changes are seen in the thoracic spine. ABDOMEN: Liver: Normal density. No measurable mass. Incidental cyst. Gallbladder and biliary tract: No radiodense calculus or dilation. Pancreas: Normal density, no abnormal calcifications or inflammatory process. Spleen: Normal. Kidneys: There is limited evaluation of the kidneys due to motion. The right kidney is surgically ab sent. Left kidney is normal size, contour and axis. No radiodense stones or obstructive uropathy. No masses seen. There are parapelvic renal cysts. Adrenal glands: Stable tiny left adrenal nodule. Abdominal Aorta: Abdominal portion non-dilated. PELVIS: Bladder: No gross wall thickening, focal mass or stones. Bowel: No obstruction or bowel wall thickening. Peritoneal cavity: No ascites, focal collection or mesenteric inflammatory response. Bones: No suspicious lesions or fractures. A hemangioma is seen in the left sacrum Reproductive organ s: Within normal limits. Lymph nodes: Unremarkable. Impression: Somewhat limited exam due to motion. No post-traumatic abnormality, pneumonia or evidence of pyelone phritis is seen. DATA REPOSITORY: All CT scans at this facility are submitted to the National Radiology Data Registry (NRDR) Dose Index Registry (DIR) with the [employer] (A[employer]). RADIATION OPTIMIZATION: All CT scans at this facility use at least one of these dose optimization te chniques: automated exposure control; mA and/or kV adjustment per patient size (includes targeted exa ms where dose is matched to clinical indication); or iterative reconstruction.
--- NOTE | 2019-04-17 10:08 | DI.CT_ITS ---
EXAM: CT HEAD CERVICAL SPINE WO CT HEAD CERVICAL SPINE WO CLINICAL HISTORY: s/p head injury/abrasion forehead. s/p head injury/abrasion forehead TECHNIQUE: Imaging Protocol: Axial computed tomography images with coronal and sagittal reformatted images were created and reviewed COMPARISON: NECK WITH CONTRAST from 05/17/2016 FINDINGS: Head CT Ventricles and Extra axial spaces: Mild atrophy and white matter changes of small vessel disease.. Hemorrhage: None. Cerebral parenchyma: Normal. Midline shift: None. Brainstem/Cerebellum: Normal. Calvarium: Normal. Visualized Paranasal sinuses/Mastoids: Clear. IMPRESSION: No acute abnormality. FINDINGS: Cervical Spine CT BONES: Vertebral body heights are maintained. Intervertebral disc spaces are normal. Alignment is nor mal. There is no evidence of acute fracture. SOFT TISSUES: No paraspinal hematoma. The airway appears intact. Mild degenerative disc changes and facet degenerative changes are seen. 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 IMPRESSION: Degenerative changes, no acute abnormality. DATA REPOSITORY: All CT scans at this facility are submitted to the National Radiology Data Registry (NRDR) Dose Index Registry (DIR) with the [employer] (ACR). RADIATION OPTIMIZATION: All CT scans at this facility use at least one of these dose optimization te chniques: automated exposure control; mA and/or kV adjustment per patient size (includes targeted exa ms where dose is matched to clinical indication); or iterative reconstruction.
--- NOTE | 2019-04-17 10:09 | DI.CT_ITS ---
EXAM: CT THORACIC LUMBAR SPINE WO CLINICAL HISTORY: s/p fall, r/o acute fracture TECHNIQUE: Reconstructions of the thoracic and lumbar spine were performed from the CT of the chest abdomen and pelvis. COMPARISON: UPPER ABD WITH CONTRAST (P) from 12/05/2011 FINDINGS: There is no evidence of an acute fracture. There are mild osteophytes in the thoracic spine. No si gnificant degenerative changes are seen in the lumbar spine. IMPRESSION: Mild degenerative changes. No acute abnormality.
--- NOTE | 2019-04-17 10:38 | DI.VRAD_ITS ---
Addendum created by Hesham Cavanaugh MD on 04/17/2019 10:56:05 AM EST Nonspecific sclerotic lesions in the medial left, and to a lesser extent right, ilium. Initial report created on 04/17/2019 10:38:09 AM EST PROCEDURE INFORMATION: Exam: CT Chest With Contrast Exam date and time: 04/17/2019 8:30 AM Age: 58 years old Clinical history: S/P fall, fever, R/O pneumonia/pyelonephritis TECHNIQUE: Imaging protocol: Computed tomography of the chest with intravenous contrast. Radiation optimization: All CT scans at this facility use at least one of these dose optimization techniques: automated exposure control; mA and/or kV adjustment per patient size (includes targeted exams where dose is matched to clinical indication); or iterative reconstruction. COMPARISON: XR CHEST 03/27/2017 FINDINGS: Limitations: The study is technically limited by breathing motion artifact. Lungs: There is bilateral dependent atelectasis. Pleural space: No pleural effusion or pneumothorax. Heart: The heart is not enlarged. No pericardial effusion. Pulmonary arteries: No pulmonary embolism. Aorta: No thoracic aortic aneurysm or dissection. Great vessels off aortic arch: No major aortic branch vessel stenosis or occlusion. Lymph nodes: No pathologically enlarged lymph nodes. Bones/joints: Multiple bilateral old, healed rib fractures. Cannot exclude an acute rib or sternal fracture due to the motion artifact. Multilevel bridging osteophytes in the thoracic spine. Soft tissues: No acute soft tissue abnormality. IMPRESSION: 1. Bilateral atelectasis. No pneumonia otherwise. 2. Cannot exclude a nondisplaced fracture given technical limitations. PROCEDURE INFORMATION: Exam: CT Abdomen And Pelvis With Contrast Exam date and time: 04/17/2019 8:30 AM Age: 58 years old Clinical history: S/P fall, fever, R/O pneumonia/pyelonephritis TECHNIQUE: Imaging protocol: Computed tomography of the abdomen and pelvis with intravenous contrast. Radiation optimization: All CT scans at this facility use at least one of these dose optimization techniques: automated exposure control; mA and/or kV adjustment per patient size (includes targeted exams where dose is matched to clinical indication); or iterative reconstruction. COMPARISON: XR ABDOMEN 05/15/2016 FINDINGS: Limitations: The study is technically limited by breathing motion artifact. Liver: The liver is not enlarged. There are hepatic cyst. Gallbladder and bile ducts: No calcified gallstones, gallbladder wall thickening, or pericholecystic inflammation. No biliary ductal dilation. Pancreas: No pancreatic mass. No peripancreatic inflammation. No pancreatic ductal dilation. Spleen: The spleen is homogeneous and is not enlarged. Adrenals: The left adrenal gland is normal. There is an 11 mm right adrenal nodule with nonspecific attenuation measurements. Kidneys and ureters: The right kidney appears absent. No left hydronephrosis allowing for parapelvic cyst formation. The left renal parenchyma is difficult to evaluate due to motion artifact, but no obvious acute parenchymal abnormality. No perirenal fluid. Stomach and bowel: No bowel obstruction, colitis or diverticulitis. Appendix: Prior appendectomy. Intraperitoneal space: No ascites or pneumoperitoneum. Vasculature: No abdominal aortic aneurysm. No iliac or common femoral artery aneurysm. The mesenteric arteries are patent. The mesenteric, portal, and hepatic veins are patent. There is a circumaortic left renal vein. Lymph nodes: No enlarged lymph nodes. Bladder: The urinary bladder is small in volume. No bladder calculus. Reproductive: Unremarkable as visualized. Bones/joints: No acute osseous abnormality. Hemangioma in the left sacrum. Soft tissues: Tiny umbilical hernia containing fat. IMPRESSION: 1. Absent right kidney. 2. Technically limited exam, but no definite acute abnormality with left kidney. 3. Right adrenal nodule. Dictated and Authenticated by: Hesham Cavanaugh MD. Ordering:JONATAN Tabares MD
--- NOTE | 2019-04-17 10:46 | DI.VRAD_ITS ---
PROCEDURE INFORMATION: Exam: CT Head Without Contrast Exam date and time: 04/17/2019 9:36 AM Age: 58 years old Clinical history: Other: S/P fall, fever, R/O pneumonia/pyelonephritis TECHNIQUE: Imaging protocol: Computed tomography of the head without contrast. Radiation optimization: All CT scans at this facility use at least one of these dose optimization techniques: automated exposure control; mA and/or kV adjustment per patient size (includes targeted exams where dose is matched to clinical indication); or iterative reconstruction. COMPARISON: CT HEAD WITHOUT CONTRAST 07/21/2015 11:30 AM FINDINGS: Limitations: Beam hardening artifact. Brain: No acute brain parenchymal abnormality. No intracranial hemorrhage. No extraaxial fluid collections. There is mild diffuse cerebral atrophy. There are mild white matter low attenuation changes in both cerebral hemispheres likely related to chronic small vessel disease. Ventricles: No hydrocephalus. Bones/joints: No calvarial fracture. Sinuses: The visualized paranasal sinuses are aerated. Mastoid air cells: The visualized mastoid air cells are aerated. Soft tissues: No acute soft tissue abnormality. IMPRESSION: No acute intracranial abnormality. PROCEDURE INFORMATION: Exam: CT Cervical Spine Without Contrast Exam date and time: 04/17/2019 9:36 AM Age: 58 years old Clinical history: Other: S/P fall, fever, R/O pneumonia/pyelonephritis TECHNIQUE: Imaging protocol: Computed tomography images of the cervical spine without contrast. Radiation optimization: All CT scans at this facility use at least one of these dose optimization techniques: automated exposure control; mA and/or kV adjustment per patient size (includes targeted exams where dose is matched to clinical indication); or iterative reconstruction. COMPARISON: CT HEAD WITHOUT CONTRAST 07/21/2015 11:30 AM FINDINGS: Limitations: The study is technically limited by motion artifact. Vertebrae: There is a curvature of the cervical spine convex to the right. The cervical vertebral bodies maintain height and sagittal alignment, though there is partial congenital fusion between the C7 and T1 segments. The facets align normally. The atlantodens interval is not widened. Craniocervical junction is maintained. No acute fracture. Discs/Spinal canal/Neural foramina: Minimal multilevel disc and uncovertebral joint degeneration. No osseous spinal stenosis. Soft tissues: Unremarkable. Lungs: Lung apices are normal. IMPRESSION: No acute osseous abnormality. Dictated and Authenticated by: Hesham Cavanaugh MD. Ordering:JONATAN Tabares MD
--- NOTE | 2019-04-17 10:57 | DI.VRAD_ITS ---
PROCEDURE INFORMATION: Exam: CT Thoracic Spine Without Contrast Exam date and time: 04/17/2019 8:30 AM Age: 58 years old Clinical history: Other: S/P fall, fever, R/O pneumonia/pyelonephritis TECHNIQUE: Imaging protocol: Computed tomography images of the thoracic spine without contrast. Radiation optimization: All CT scans at this facility use at least one of these dose optimization techniques: automated exposure control; mA and/or kV adjustment per patient size (includes targeted exams where dose is matched to clinical indication); or iterative reconstruction. COMPARISON: No relevant prior studies available. FINDINGS: Vertebrae: The lumbar vertebral bodies maintain height and alignment. The facets align normally. No acute fracture. There is a hemangioma in the T12 vertebral body. Discs/Spinal canal/Neural foramina: There is multilevel disc degeneration. Soft tissues: No paraspinal hematoma. IMPRESSION: No acute osseous abnormality. PROCEDURE INFORMATION: Exam: CT Lumbar Spine Without Contrast Exam date and time: 04/17/2019 8:30 AM Age: 58 years old Clinical history: Other: S/P fall, fever, R/O pneumonia/pyelonephritis TECHNIQUE: Imaging protocol: Computed tomography images of the lumbar spine without contrast. Radiation optimization: All CT scans at this facility use at least one of these dose optimization techniques: automated exposure control; mA and/or kV adjustment per patient size (includes targeted exams where dose is matched to clinical indication); or iterative reconstruction. COMPARISON: No relevant prior studies available. FINDINGS: Vertebrae: The lumbar vertebral bodies maintain height and alignment. The facets align normally. No acute fracture. Discs/Spinal canal/Neural foramina: There is multilevel disc degeneration. Soft tissues: No paraspinal hematoma. IMPRESSION: No acute osseous abnormality. Dictated and Authenticated by: Hesham Cavanaugh MD. Ordering:JONATAN Tabares MD
[2019-04-17] MEDS: Omnipaque 350 MG/ML 100 ML BTL IJ (11:04)
[2019-04-17] MEDS: levoFLOXacin 750 MG/150 ML BAG 100 MG IVPB (11:20)
--- NOTE | 2019-04-17 12:09 | HPE_ITS ---
Date of service: 04/17/19 Time of Service: 12:09 Assessment and Plan Assessment and plan (1) UTI (urinary tract infection): Start date: 04/17/19 Start time: 12:27 Status: Acute Assessment and plan: Urinalysis with moderate blood amount, small Leukocyte esterase, negative nitrates today positive yesterday, greater 50 wbc. Admitted to m/s for IV ceftriaxone, Lactate 1.5, NS 100 x 1 L. recheck lactate in am. Last urine culture grew Kleb. pneum. pansensitive, will wait for cultures to grow out. Blood cultures pending. Continue to monitor. (2) Encephalopathy acute: Start date: 04/17/19 Start time: 12:27 Status: Acute Assessment and plan: Likely in setting of UTI. Having hallucinations and confusion. See above. (3) Epilepsy, unspecified, intractable, without status epilepticus: Start date: 04/17/19 Start time: 12:35 Status: Chronic Assessment and plan: Unsure if patient fell last night or had a seizure. Will monitor for seizure activity. Continue current regimen. (4) Cerebral palsy: Start date: 04/17/19 Start time: 12:36 Status: Chronic Assessment and plan: Usually able to answer some questions. confused at this time see above. (5) IFG (impaired fasting glucose): Start date: 04/17/19 Start time: 12:37 Status: Chronic Assessment and plan: Will keep on carb controlled diet and monitor by am labs (6) DVT prophylaxis: Start date: 04/17/19 Start time: 12:37 Status: Acute Assessment and plan: enoxaparin subcu Above case discussed with Dr. Obrien who is in agreement. History of Present Illness History of Present Illness Chief Complaint: UTI, Encephalopathy Narrative: 58 y.o M with PMH of Cerebral palsy, epilepsy, dysphagia and Hyperlipidemia presented to [facility] ED today after for hallucinations, seen yesterday and diagnosed with UTI. He was discharged from ED yesterday with a prescription of bactrim and presents today with weakness and worsening confusion and hallucinations. There was concern for a fall overnight as well. Head CT with no acute abnormality, Chest CT could not rule out acute rib fractures due, also atelectasis. Labs in the ED revealing leukocytosis improved from yesterday, lactate 1.5, otherwise unremarkable. Last urine culture in 2016 grew klebsiella Pneumoniae pansensitive, patient started on ceftriaxone 1 gm q 24. Afebrile,normotensive bp slightly tachy hr. Will admit to m/s for further management. He is confused at this time and caregiver is not with patient. Unable to answer questions appropriately Review of Systems All systems reviewed & are unremarkable except as noted in HPI and below PFSH Medical History Cerebral palsy (Chronic) Chronic rhinitis (Chronic 06/27/11) Epilepsy, unspecified, intractable, without status epilepticus (Chronic) Hyperlipidemia (Chronic 06/12/17) 08/2018 labs: 10-year ASCVD risk = ~5.5% --> no statin indicated at this time IFG (impaired fasting glucose) (Chronic 06/12/17) Osteoporosis (Chronic) 02/03/2018 2-year f/u DEXA (s/p starting Reclast): stable, some improvement 06/2018: Reclast infusions 2016, , & - d/c Reclast and restart PRN pending f/u DEXA scans or fractures Subclinical hypothyroidism (Chronic 11/09/15) Synovitis of knee (Resolved 08/13/13) Unspecified disorder of liver (Chronic 06/27/11) Hemangioma right lobe liver on CT 12/05/2011 Surgical History Appendectomy (Resolved) Arthroplasty of knee (Resolved) H/O elbow surgery (Chronic) Laryngoscopy w/ removal of foreign body (Resolved) Family History Sister , Melanoma Neoplasm Melanoma Sister Neoplasm Breast CA Brother No problems noted. Social History Smoking/Tobacco Use Status: Never Alcohol Intake: never Drug use: Never Substance use type: does not use Caregiver/Support person: Yes (Mane) Household members: other Details: Caregiver, caregiver's , daughter, grandchild Pets and animals: Yes Pets and animals: dog(s) What type of physical activity do you participate in: other Details: Stairs Frequency: daily Seatbelt use: always Water heater temp set <120 deg: Yes Working smoke detector in home: Yes Fire extinguisher in home: Yes Carbon monox detector in home: Yes Firearms in home: No Do you feel safe at home: Yes Do you feel safe in your relationship?: Yes Additional Social history: He is on disability. He lives with his caregiver Milena Presley (Zanna) (since early ? longer?). Manager Pulmonary is Denis Melara. No smoking, ETOH, or illicit drug use. Meds Home Medications and Allergies Home Medications Medication Instructions Recorded Confirmed Type citalopram [Celexa] 30 mg PO DAILY tab-cap 07/14/12 04/17/19 History ibuprofen 200 mg PO PRN 07/14/12 04/17/19 History acetaminophen 325 mg PO PRN PRN #2 05/26/13 04/17/19 History Buspirone HCl 5 mg PO BID tab-cap 06/13/17 10/30/18 History Disposable Brief Jumbo X-Large #200 ea 12/12/17 10/30/18 Rx lamotrigine 100 mg tablet 100 mg PO DIRECTED #270 tab 01/14/18 04/17/19 Rx zonisamide 100 mg capsule 300 mg PO HS #270 cap 05/26/18 04/17/19 Rx Spacer 1 unit MISCELLANEOUS .Q4-6H PRN #1 10/30/18 10/30/18 Rx unit albuterol sulfate 90 mcg/actuation 1 - 2 puff IH Q4H PRN #1 device 10/30/18 04/17/19 Rx aerosol inhaler benzonatate 100 mg capsule 100 mg PO HS PRN #90 tab-cap 12/17/18 04/17/19 Rx calcium carbonate 500 mg (1,250 1 tab PO DAILY #90 tab-cap 12/17/18 04/17/19 Rx mg)-vitamin D3 400 unit tablet levetiracetam 750 mg tablet 1,500 mg PO BID #360 tab 01/20/19 04/17/19 Rx xpovmrmgltsb-Hv-hbcc-minerals 18 1 tab PO DAILY #90 tab-cap 01/20/19 04/17/19 Rx mg-0.4 mg tablet sulfamethoxazole-trimethoprim 1 tab PO BID #6 tab 04/16/19 04/17/19 Rx [Bactrim DS] Allergies Allergy/AdvReac Type Severity Reaction Status Date / Time Penicillins Allergy Mild Unverified 04/17/19 08:11 pseudoephedrine Allergy Mild Unverified 04/17/19 08:11 PHENOBARBITOL Allergy Intermediate PT. GETS Uncoded 04/17/19 08:11 AGITATED Exam Narrative Exam Narrative: Const: Altered, looks stated age, sitting up in chair and fidgeting with fingers HENMT: Normocephalic, appears to be a hard lump on right side of throat, almost as if healed broken clavicle Eyes: PERRLA, EOMI Neck:no goiter, lymphedema or enlarged thyroid Chest: normal appearance Resp: even, unlabored, LSCTB Cardio: RRR, no murmur appreciated GI: soft nontender, BSAQ : wears a brief, appears to be wet Back: no CVA tenderness Skin: abraision to forehead, left knee, multiple spots of bruising to left knee and thigh Neuro: confused at this time Extrem: FROM, no clubbing, cyanosis or edema Psych: pleasant. Results Labs Result diagrams: 04/17/19 08:40 04/17/19 08:40 Labs: Laboratory Results - last 24 hr 04/17/19 04/17/19 04/17/19 08:40 08:40 08:40 WBC RBC Hgb Hct MCV MCH MCHC RDW Plt Count MPV Immature Gran % Neutrophils % Lymphocytes % Monocytes % Eosinophils % Basophils % Absolute Neutrophils Absolute Lymphocytes Absolute Monocytes Absolute Eosinophils Absolute Basophils Sodium 143 D Potassium 3.5 Chloride 105 Carbon Dioxide 24.8 Anion Gap 13.2 H BUN 21 H Creatinine 1.29 Estimated GFR/1.73 m2 57.21 Glucose 135 H Lactate 1.5 H Calcium 9.4 Magnesium 1.9 Total Bilirubin 0.7 AST 30 ALT 29 Alkaline Phosphatase 68 Troponin I < 0.05 Total Protein 7.7 Albumin 4.4 Lipase 142 Urine Color Urine Clarity Urine pH Ur Specific [place] Urine Protein Urine Ketones Urine Blood Urine Nitrite Urine Bilirubin Urine Urobilinogen Ur Leukocyte Esterase Urine RBC Urine WBC Ur Epithelial Cells Urine Crystals Urine Bacteria Urine Mucus Ur Culture Indicated? Urine Glucose 04/17/19 04/17/19 08:40 09:30 WBC 13.65 H RBC 4.55 Hgb 13.6 Hct 39.3 L MCV 86.4 MCH 29.9 MCHC 34.6 RDW 13.7 Plt Count 434 H MPV 8.8 Immature Gran % 0.1 Neutrophils % 77.2 Lymphocytes % 14.1 Monocytes % 8.0 Eosinophils % 0.2 Basophils % 0.4 Absolute Neutrophils 10.54 H Absolute Lymphocytes 1.92 Absolute Monocytes 1.09 H Absolute Eosinophils 0.03 Absolute Basophils 0.05 Sodium Potassium Chloride Carbon Dioxide Anion Gap BUN Creatinine Estimated GFR/1.73 m2 Glucose Lactate Calcium Magnesium Total Bilirubin AST ALT Alkaline Phosphatase Troponin I Total Protein Albumin Lipase Urine Color Yellow Urine Clarity Sl cloudy Urine pH 6.0 Ur Specific [place] >= 1.030 H Urine Protein 30 H Urine Ketones 40 H Urine Blood Moderate H Urine Nitrite Negative Urine Bilirubin Small H Urine Urobilinogen 0.2 Ur Leukocyte Esterase Small H Urine RBC 20-50 H Urine WBC >50 H Ur Epithelial Cells Few Urine Crystals Negative Urine Bacteria Moderate Urine Mucus Trace Ur Culture Indicated? Yes Urine Glucose Negative Last Vital Signs Temp 37.7 C H 04/17/19 08:28 Pulse 103 H 04/17/19 09:16 Resp 16 04/17/19 09:21 BP 129/59 L 04/17/19 09:16 Pulse Ox 94 L 04/17/19 08:20
[2019-04-17] MEDS: cefTRIAXone 1 GM/50 ML BAG IVPB (12:44)
[2019-04-17] MEDS: Normal Saline 1,000 ML 100 ML IV (12:56)
[2019-04-17] MEDS: Enoxaparin 40 MG/0.4 ML SYR SC (13:09)
[2019-04-17 13:40] LABS: VALPROIC ACID < 3 ug/mL (50-100)
[2019-04-17] MEDS: Acetaminophen 325 MG TAB 650 MG PO (18:28)
[2019-04-17] MEDS: Lidocaine 2% Jelly 11 ML SYR UR (18:55)
[2019-04-17] MEDS: Phenazopyridine 100 MG TAB PO (19:34)
[2019-04-17] MEDS: lamoTRIgine 100 MG TAB 200 MG PO (19:34)
[2019-04-17] MEDS: levETIRAcetam 500 MG TAB 1500 MG PO (19:35)
[2019-04-17] MEDS: Zonisamide 100 MG CAP 300 MG PO (22:42)
[2019-04-18] MEDS: Acetaminophen 325 MG TAB 650 MG PO ×2 (00:06→07:50)
[2019-04-18] MEDS: Polyethylene Glycol 3350 17 GM PACKET PO (00:06)
[2019-04-18 03:18] VITALS: BP 153/74; PULSE 95; RESP 17; TEMP 36.1; O2SAT 96
[2019-04-18 07:46] LABS: HGB 12.3 g/dL (13.5-17.5); Mean Corp. HGB Concentration 33.2 g/dL (32.0-36.0); Mean Corpuscular Hemoglobin 29.3 pg (27.0-33.0); Mean Corpuscular Volume 88.1 fL (80-95); Mean Platelet Volume 8.8 fL (8.0-11.0); Platelet Count 409 x1000/uL (130-400); RBC Distribution Width 14.1 % (11.8-14.1); White Blood Cell Count 8.53 k/cumm (4.4-10.8)
[2019-04-18] MEDS: Citalopram 10 MG TAB 30 MG PO (07:49)
[2019-04-18] MEDS: levETIRAcetam 500 MG TAB 1500 MG PO ×2 (07:49→19:37)
[2019-04-18] MEDS: Multivitamin w/Minerals TAB 1 TAB PO (07:50)
[2019-04-18] MEDS: lamoTRIgine 100 MG TAB PO (07:50)
[2019-04-18] MEDS: Phenazopyridine 100 MG TAB PO ×3 (07:50→19:38)
[2019-04-18 07:55] LABS: BUN 9 mg/dL (7-18); CREATININE 0.95 mg/dL (0.70-1.30); Calcium 8.2 mg/dL (8.5-10.1); Chloride 106 mmol/L (98-107); Glucose 85 mg/dL (74-106); Magnesium 1.9 mg/dL (1.8-2.4); Potassium 3.8 mmol/L (3.5-5.1); Sodium 141 mmol/L (136-145)
--- NOTE | 2019-04-18 10:14 | PHARADMIT ---
Admission Pharmacy Clinical Review hallucinations, UTI, fever, gait imbalance Code Status Full Code Current Weight 57.6 kg Renally Cleared and Narrow Therapeutic Index Meds Crcl ~65 mL/min current meds okay QTc Value / Action Taken QTc 463 BP Control, Fever BP 153/74 Tmax 37.8 yesterday Electrolytes reviewed within normal limits DVT Prophylaxis enoxaparin put on hold due to hematuria Opiate Usage / Scheduled Bowel Regimen Ordered no/prn Plt/SCr for Heparin / Enoxaparin plt 409 SCr 0.95 INR for Warfarin n/a H/H stable, WBC/Bands h/h 12.3/37.0 WBC 8.53 Antibiotic appropriateness ceftriaxone for UTI Cultures and Sensitivities blood cultures pending urine culture growing gram - and + wilma; probable contaminant urine culture from ED 04/16/19 growing 2 gram negative rods Surgical ABX d/c within 24 hr n/a DM control / Insulin Dosing BG 85 none Heart Failure (Check EF%) (JORDAN's, B-Block, Diuretics) none IV to PO Switch n/a Home Meds Reviewed -citalopram may enhance the antiplatelet effect of ibuprofen, ibuprofen may diminish the therapeutic effect of citalopram -separate admin of multivitamin from calcium/vit D Home Meds Not Ordered buspirone, ibuprofen (held due to renal function yesterday), bactrim (has other abx ordered) Comments
--- NOTE | 2019-04-18 10:19 | PGE_ITS ---
Date of Service Date of service: 04/18/19 Time of Service: 10:19 Assessment and Plan Assessment and plan (1) UTI (urinary tract infection): Start date: 04/18/19 Start time: 10:23 Status: Acute Assessment and plan: urine culture growing gram positive greater than 100,00 sensitivities pending. Continue ceftriaxone. WBC normalized today, mental status better. Continue current management. Concern by nursing about enlarged prostate. PVR no greater than 240, however they attempted to straight cath and met resistance followed by large amounts of hematuria, enoxaparin on hold at this time. Started on flomax, as patient was struggling as well to empty bladder per nursing and will need follow up with urology as an outpatient. (2) Encephalopathy acute: Start date: 04/18/19 Start time: 10:26 Status: Acute Assessment and plan: Improving. See above. (3) Epilepsy, unspecified, intractable, without status epilepticus: Start date: 04/18/19 Start time: 10:27 Status: Chronic Assessment and plan: No seizure activity at this time. Toxicology results pending. Continue to monitor (4) Cerebral palsy: Start date: 04/18/19 Start time: 10:29 Status: Chronic Assessment and plan: Doing better today, more alert, sleepy. will start PT/OT tomorrow (5) IFG (impaired fasting glucose): Start date: 04/18/19 Start time: 10:33 Status: Chronic Assessment and plan: Will keep on carb controlled diet, am glucose 85. Continue to monitor. (6) DVT prophylaxis: Start date: 04/18/19 Start time: 10:33 Status: Acute Assessment and plan: Held at this time due to hematuria Above case discussed with Dr. Obrien who is in agreement. Subjective Subjective Patient reports: no new complaints Interval history since last seen: Mental status is improving today. Concern by nursing for hematuria when trying to insert catheter. Will start on flomax as patient was having difficulty voiding. Recommend follow up with urology as an outpatient. Exam Narrative Exam Narrative: Const: Altered, looks stated age, lying in bed, sleepy today but alert and able to better answer questions. HENMT: Normocephalic, appears to be a hard lump on right side of throat, almost as if healed broken clavicle Eyes: PERRLA, EOMI Neck:no goiter, lymphedema or enlarged thyroid Chest: normal appearance Resp: even, unlabored, LSCTB Cardio: RRR, no murmur appreciated GI: soft nontender, BSAQ : wears a brief, appears to be wet Back: no CVA tenderness Skin: abraision to forehead, left knee, multiple spots of bruising to left knee and thigh Neuro: confused at this time Extrem: FROM, no clubbing, cyanosis or edema Psych: pleasant. Objective Objective Clinical Data: Abnormal lab results 04/17/19 04/18/19 04/18/19 Range/Units 08:40 07:31 07:31 RBC 4.20 L (4.50-6.00) m/cumm Hgb 12.3 L (13.5-17.5) g/dL Hct 37.0 L (40.0-50.0) % Plt Count 409 H (130-400) x1000/uL Calcium 8.2 L (8.5-10.1) mg/dL Total Valproic Acid < 3 L (50-100) ug/mL Vital Signs Temperature 36.1 C L 04/18/19 03:18 Temperature Source Tympanic 04/18/19 03:18 Pulse 95 H 04/18/19 03:18 Pulse Rhythm Regular 04/18/19 01:38 Pulse 104 H 04/17/19 09:21 Respiratory Rate 17 04/18/19 03:18 Respiratory Effort Non-Labored 04/18/19 08:46 Respiratory Depth Normal 04/18/19 08:46 Respiratory Pattern Normal 04/18/19 08:46 Blood Pressure 153/74 H 04/18/19 03:18 Blood Pressure Mean 76 04/17/19 09:16 Blood Pressure Position Supine 04/17/19 08:06 Pulse Oximetry 96 04/18/19 03:18 Oxygen Delivery Method Room Air 04/18/19 03:18 Oxygen Flow Rate 0 04/18/19 03:18 Pain Level 0 04/18/19 03:18 Intake & Output 04/17/19 04/17/19 04/18/19 11:59 23:59 11:59 Intake Total 1000 / 3000 2000 / 3000 500 / 500 Output Total 1594 / 1594 1572 / 1572 Balance 1000 / 1406 406 / 1406 -1072 / -1072 Weight 57.6 kg 57.6 kg Intake: IV 1000 / 3000 2000 / 3000 Oral 500 / 500 Output: Urine 1350 / 1350 1400 / 1400 Post Void Residual 244 / 244 172 / 172 Other: Urine Color Mcclain Mcclain Urine Appearance Clear Clear Urine Odor None None Comment incontinent orange from the pyridium Stool Size Small Stool Characteristics Liquid Brown Voiding Methods Bedside Commode Toilet Laboratory Results WBC 8.53 k/cumm (4.4-10.8) D 04/18/19 07:31 RBC 4.20 m/cumm (4.50-6.00) L 04/18/19 07:31 Hgb 12.3 g/dL (13.5-17.5) L 04/18/19 07:31 Hct 37.0 % (40.0-50.0) L 04/18/19 07:31 MCV 88.1 fL (80-95) 04/18/19 07:31 MCH 29.3 pg (27.0-33.0) 04/18/19 07:31 MCHC 33.2 g/dL (32.0-36.0) 04/18/19 07:31 RDW 14.1 % (11.8-14.1) 04/18/19 07:31 Plt Count 409 x1000/uL (130-400) H 04/18/19 07:31 MPV 8.8 fL (8.0-11.0) 04/18/19 07:31 Immature Gran % 0.1 04/17/19 08:40 Neutrophils % 77.2 04/17/19 08:40 Lymphocytes % 14.1 04/17/19 08:40 Monocytes % 8.0 04/17/19 08:40 Eosinophils % 0.2 04/17/19 08:40 Basophils % 0.4 04/17/19 08:40 Absolute Neutrophils 10.54 k/cumm (1.2-6.7) H 04/17/19 08:40 Absolute Lymphocytes 1.92 k/cumm (1.2-3.4) 04/17/19 08:40 Absolute Monocytes 1.09 k/cumm (0.11-0.7) H 04/17/19 08:40 Absolute Eosinophils 0.03 k/cumm (0.0-0.7) 04/17/19 08:40 Absolute Basophils 0.05 k/cumm (0.0-0.2) 04/17/19 08:40 Sodium 141 mmol/L (136-145) 04/18/19 07:31 Potassium 3.8 mmol/L (3.5-5.1) 04/18/19 07:31 Chloride 106 mmol/L (98-107) 04/18/19 07:31 Carbon Dioxide 25.0 mmol/L (21.0-32.0) 04/18/19 07:31 Anion Gap 10.0 mmol/L (3-11) 04/18/19 07:31 BUN 9 mg/dL (7-18) D 04/18/19 07:31 Creatinine 0.95 mg/dL (0.70-1.30) 04/18/19 07:31 Estimated GFR/1.73 m2 >= 60.00 (mL/min/1.73m2) 04/18/19 07:31 Glucose 85 mg/dL (74-106) D 04/18/19 07:31 Lactate 1.0 mmol/L (0.6-1.4) 04/18/19 07:31 Calcium 8.2 mg/dL (8.5-10.1) L 04/18/19 07:31 Magnesium 1.9 mg/dL (1.8-2.4) 04/18/19 07:31 Total Bilirubin 0.7 mg/dL (0.2-1.0) 04/17/19 08:40 AST 30 U/L (15-37) 04/17/19 08:40 ALT 29 U/L (16-63) 04/17/19 08:40 Alkaline Phosphatase 68 U/L (46-116) 04/17/19 08:40 Troponin I < 0.05 ng/Ml (<0.06) 04/17/19 08:40 Total Protein 7.7 g/dL (6.4-8.2) 04/17/19 08:40 Albumin 4.4 g/dL (3.4-5.0) 04/17/19 08:40 Lipase 142 U/L (73-393) 04/17/19 08:40 Urine Color Yellow (Yellow) 04/17/19 09:30 Urine Clarity Sl cloudy (Clear) 04/17/19 09:30 Urine pH 6.0 (5-8) 04/17/19 09:30 Ur Specific [place] >= 1.030 (1.005-1.025) H 04/17/19 09:30 Urine Protein 30 mg/dL (Negative) H 04/17/19 09:30 Urine Ketones 40 mg/dL (Negative) H 04/17/19 09:30 Urine Blood Moderate (Negative) H 04/17/19 09:30 Urine Nitrite Negative (Negative) 04/17/19 09:30 Urine Bilirubin Small (Negative) H 04/17/19 09:30 Urine Urobilinogen 0.2 EU/dL (Up TO 0.2) 04/17/19 09:30 Ur Leukocyte Esterase Small (Negative) H 04/17/19 09:30 Urine RBC 20-50 HPF (0-2) H 04/17/19 09:30 Urine WBC >50 HPF (0-5) H 04/17/19 09:30 Ur Epithelial Cells Few HPF (Negative) 04/17/19 09:30 Urine Crystals Negative HPF (Negative) 04/17/19 09:30 Urine Bacteria Moderate HPF (Negative) 04/17/19 09:30 Urine Mucus Trace (Negative) 04/17/19 09:30 Ur Culture Indicated? Yes 04/17/19 09:30 Urine Glucose Negative mg/dL (Negative) 04/17/19 09:30 Total Valproic Acid < 3 ug/mL (50-100) L 04/17/19 08:40
[2019-04-18] MEDS: cefTRIAXone 1 GM/50 ML BAG IVPB (11:54)
[2019-04-18] MEDS: Tamsulosin 0.4 MG CAPCR PO (11:58)
[2019-04-18] MEDS: cefTRIAXone 1 GM VIAL IM (15:08)
[2019-04-18] MEDS: Lidocaine 1% Multi-Dose 50 ML VIAL IJ (15:08)
--- NOTE | 2019-04-18 15:35 | PDOC.CMIN ---
Care Management Initial Assess REASON FOR HOSPITALIZATION:: Hallucinations, UTI, Fever, Gait Imbalance PAST MEDICAL HISTORY/PAST SURGICAL HISTORY:: Cerebral palsy, chronic rhinitis, epilepsy, hyperlipidemia, IFG, osteoporosis, subclinical hypothyroidism, synovitis of knee, unspecified disorder of liver, appendectomy, arthroplasty of knee, elbow surgery, laryngoscopy with removal of foreign body PREVIOUS FUNCTIONAL STATUS/SOCIAL/FAMILY SUPPORTS:: Jose M resides in [facility] with his long time home provider and caregiver; Zohra Presley with service supports coordinated through [facility] program. Jose M's caregiver shared the following with ED provider 04/16/19: flight of ideas is typical for the patient and that at baseline, they are unable to hold a normal conversation with him. He does report that the patient had breakthrough seizure a few days ago and that this was worse than his typical seizures. Reports that symptoms began mildly yesterday slight increase in confusion and seeing bugs with symptoms maximizing today. Reports that the patient has appeared slightly off balance has been more animated than typical. Hallucinations are new. CURRENT FUNCTIONAL STATUS:: Jose M sleeps throughout the day and is reportedly confused when awake. ADVANCE DIRECTIVES:: On file at [facility]: Merna Stuart: sister, others to include [employer] ([facility]) and home provider; Zohra Presley. Has patient been provided with information about the portal?: No Did the patient sign up for the portal?: No CODE STATUS:: Full Code INSURANCE COVERAGE / FINANCIAL ISSUES:: Medicaid. Medicare CURRENT HOME/COMMUNITY SERVICES/EQUIPMENT:: [facility], home provider PRIMARY CARE PHYSICIAN:: Sis Roman NP POTENTIAL DISCHARGE NEEDS:: Coordinated return to home provider. Evaluation for further needs. PATIENT/FAMILY EDUCATION NEEDS:: Review discharge instructions, discuss Ask Me Three. ANTICIPATED BARRIERS TO DISCHARGE:: None identified at this time. TRANSPORTATION:: Via private vehicle with his caregivers. PLAN:: Jose M will return home, to his long term care pharmacist home provider, when ready per MD. He will transport via private vehicle with his providers. CM will continue to follow and support discharge planning considerations.
[2019-04-18] MEDS: lamoTRIgine 100 MG TAB 200 MG PO (19:37)
[2019-04-18] MEDS: Zonisamide 100 MG CAP 300 MG PO (19:38)
[2019-04-18 19:45] VITALS: BP 151/73; PULSE 93; RESP 17; TEMP 36.3; O2SAT 96
[2019-04-19 06:33] LABS: HGB 12.9 g/dL (13.5-17.5); Mean Corp. HGB Concentration 33.1 g/dL (32.0-36.0); Mean Corpuscular Volume 87.6 fL (80-95); Mean Platelet Volume 8.9 fL (8.0-11.0); Platelet Count 425 x1000/uL (130-400); RBC 4.45 m/cumm (4.50-6.00); RBC Distribution Width 14.3 % (11.8-14.1); White Blood Cell Count 7.47 k/cumm (4.4-10.8)
[2019-04-19 06:57] LABS: Anion Gap 11.4 mmol/L (3-11); BUN 12 mg/dL (7-18); CO2 24.6 mmol/L (21.0-32.0); CREATININE 1.07 mg/dL (0.70-1.30); Calcium 8.4 mg/dL (8.5-10.1); Chloride 107 mmol/L (98-107); Glucose 89 mg/dL (74-106); Potassium 3.4 mmol/L (3.5-5.1); Sodium 143 mmol/L (136-145)
[2019-04-19 07:30] VITALS: BP 149/70; PULSE 58; RESP 19; TEMP 36.5; O2SAT 95
[2019-04-19] MEDS: levETIRAcetam 500 MG TAB 1500 MG PO (08:04)
[2019-04-19] MEDS: lamoTRIgine 100 MG TAB PO (08:05)
[2019-04-19] MEDS: Phenazopyridine 100 MG TAB PO (08:05)
[2019-04-19] MEDS: Acetaminophen 325 MG TAB 650 MG PO (08:05)
[2019-04-19] MEDS: Multivitamin w/Minerals TAB 1 TAB PO (08:05)
[2019-04-19] MEDS: Citalopram 10 MG TAB 30 MG PO (08:05)
[2019-04-19] MEDS: Tamsulosin 0.4 MG CAPCR PO (08:05)
[2019-04-19] MEDS: Potassium Chloride 20 MEQ TABCR 40 MEQ PO (08:06)
--- NOTE | 2019-04-19 08:07 | OT.INIE ---
Occupational Therapy Notes Inpatient Occupational Therapy Evaluation Date: 04/19/19 Referring Doctor:Nanci Crow NP OT Orders: Non-Urgent Precautions: Standard, Fall, Full Code status PATIENT PROFILE/ADMITTING DIAGNOSIS: Pt is a 58 year old male who was admitted through the ER on 04/17 after coming to the ER the night before due to hallucinations. Pt was brought in per his caregiver and was admitted to Med Surg for Hallucinations, UTI, fever, gait instability, encephalopathy, epilepsy, IFG. Past Medical History- Medical History Cerebral palsy (Chronic) Chronic rhinitis (Chronic 06/27/11) Epilepsy, unspecified, intractable, without status epilepticus (Chronic) Hyperlipidemia (Chronic 06/12/17) 08/2018 labs: 10-year ASCVD risk = ~5.5% --> no statin indicated at this time IFG (impaired fasting glucose) (Chronic 06/12/17) Osteoporosis (Chronic) 02/03/2018 2-year f/u DEXA (s/p starting Reclast): stable, some improvement 06/2018: Reclast infusions 2016, , & - d/c Reclast and restart PRN pending f/u DEXA scans or fractures Subclinical hypothyroidism (Chronic 11/09/15) Synovitis of knee (Resolved 08/13/13) Unspecified disorder of liver (Chronic 06/27/11) Hemangioma right lobe liver on CT 12/05/2011 Surgical History Appendectomy (Resolved) Arthroplasty of knee (Resolved) H/O elbow surgery (Chronic) Laryngoscopy w/ removal of foreign body (Resolved) Social History/Home Situation: Pt lives with caregivers through [facility] program. They reported through pts chart that pt likes to sleep throughout the day, he is confused at baseline and is unable to hold conversations. Pt reports to OT that they have a regular shower with a tub. He states that he does have (A) with his ADLs and states they help me with everything. Equipment owned/DME: Unable to assess as pt states that he does not know. SUBJECTIVE: Pt is pleasant and appropriate. He is confused on where he is and while standing at the sink states, I am overwhelmed because this reminds me of when mother in this room. Pt was agreeable to OT consult and performance of ADLs. OBJECTIVE: General Observation: Pt is concerned of the bruising on his arms, he is pleasant and confused. He is able to answer questions asked per OT and carry conversation. Mental Status: Alert to name, pt has a developmental delay Pain: 5/10 pain he reports is in his neck and back ROM: RUE AROM WNL L UE AROM WNL STRENGTH: RUE Shoulder flexion 4/5, bicep 3+/5, tricep 3+/5, meter/relay technician is symmetrical and weak LUE Shoulder flexion 4/5, bicep 3+/5, tricep 3+/5, meter/relay technician is symmetrical and weak FUNCTIONAL MOBILITY/ADLS: Transfers Supine-sit (I) Sit-supine (I) Sit-Stand (S) Stand-sit (S) Bed-Chair (S) BATHING Bathing UE Standing at sink (S), (I) face, (B) UE, abdomen, max (A) back, Min (A) hair with shower cap min vc for performance. Bathing LE Sitting in chair (I) kisha area, (I) (B) LE *It is worthy of note that while standing at sink pt had a slight step back in his balance reporting that he was overwhelmed and this reminded him of when his mother . Per assessment of OT it was unclear as to whether this was loss of balance or just stepping back to process his cognitive training. DRESSING Dressing UE Sitting in chair (I) [facility] gown with min vc for arm placement Dressing LE Sitting on side of bed (I) [facility] (B) socks GROOMING Standing at sink (S), (I) with brushing hair TOILETING On toilet, (I) with toileting hygiene. EATING NT BALANCE: Static sitting Normal Dynamic Sitting Normal Static Standing Normal Dynamic Standing Good SPECIAL TESTS: Daily Activity Limitations Standardized Measure [facility] AM -PAC ?6 clicks? Daily Activity Inpatient Short Form: Raw score: 22 Standardized score: 47.10 CMS score: 25.80% INFORMED CONSENT/EDUCATION: Pt instructed in purpose of OT Consult and plan of care. ASSESSMENT: Patient is a 58-year-old male referred to occupational therapy services with diagnosis of Hallucinations, UTI, fever, gait instability, encephalopathy, epilepsy, IFG. Patient presents with clinical signs and symptoms consistent with dx. Todays session consisted of assessment of functional abilities and pt's functional (I). Pt demonstrated ideal (I) in his ADL routines in both standing and sitting positions. OT was unable to assess pt's full baseline as pt was unable to state. However pt demonstrated his ADLs with ideal (I). Based on pts current level of function, OT recommends that pt should return home with caregivers when medically cleared per MD. OT will formally discharge pt from skilled OT services at this time due to his functional (I). AMPAC score 22 Patient is assessed as a Low 96179 complexity based on the following: History: See above Examination: See functional limitations as noted above. Presentation: Evolving Decision Making: AMPAC score 22 GOALS N/A PLAN OF CARE/TREATMENT PLAN: OT consult only. DISCHARGE RECOMMENDATIONS home with care givers when medically cleared per MD. TREATMENT TIME/MINUTES/CODES [id number], [id number] Jocelin Du OTR/L [facility]
--- NOTE | 2019-04-19 08:59 | IN_ITS ---
Date of service: 04/19/19 Time of Service: 08:05 PT Notes Visit Reasons: HALLUCINATIONS, UTI, FEVER, GAIT IMBALANCE Inpatient Physical Therapy Evaluation Date: 04/19/19 Referring Doctor: Nanci Crow NP PT Orders: PT CONSULT: Evaluate and Treat Precautions: Standard Patient Profile/Admitting Diagnosis: Orders received for this 58 year old male with a hx of cognitive delay. He was seen in the ED a few days ago and diagnosed with UTI and sent home with outpatient antibiotics. He returned later to the ED with increasing weakness and confusion and possibility of a fall although not witnessed. HE has been admitted for monitoring and for medical management. OT evaluation was completed right before this evaluation. PMHX: Cerebral palsy, epilepsy, dysphagia and Hyperlipidemia Social History/Home Situation: Lives at home with the assistance of caregiver Current Functional Limitations: Ambulation limits on distance Equipment Owned/DME: N/A Subjective: Patient states that he is a little sore at the neck, back, left arm and left knee Objective: General Observation: Confused but pleasant male sitting up in chair having breakfast. He has notable bruising patterns on his left arm anterior aspect, and left knee kisha patellar area. Mental Status: Oriented to person, slightly oriented to place and no concept of time. Pain: Neck, back, knees bilaterally, and shoulders Vital Signs: stable per nursing. ROM: Right Upper Extremity: Shoulder flexion to 130, elbow WNL, wrist WNL Left Upper Extremity: Shoulder flexion to about 100, elbow WNL, wrist WNL Right Lower Extremity: WFL to hip, knee, and ankle Left Lower Extremity: WFL to hip, knee, and ankle Strength: Right Upper Extremity: Shoulder flexion 4+/5 mild pain bilaterally, biceps 5/5, triceps, 5/5, alternative energy technician strength is strong Left Upper Extremity: Shoulder flexion 4+/5 mild pain bilaterally, biceps 5/5, t riceps, 5/5, alternative energy technician strength is strong Right Lower Extremity: hip flexion 4+/5, quads 5/5, hamstrings 5/5, dorsiflexion 5/5, plantarflexion 5/5 Left Lower Extremity: hip flexion 4+/5, quads 5/5, hamstrings 5/5, dorsiflexion 5/5, plantarflexion 5/5 Sensation: Patient intact to light touch and sensation through upper and lower extremty dermatomes. Motor control intact through functional myotomes and patient intact to proprioception and kinesthetic awareness Bed Mobility/Transfers: Patient does require a whole lot of assistance. He is mainly confused and needs hand hold contact guard for guidance and for safety direction. Gait: Ambulation to 40 feet with CGA no device needed Balance: Static Sitting: Normal Dynamic Sitting: Good Static Standing: Good Dynamic Standing: Fair Special Tests: Mobility Limitations Standardized Measure [facility] AM-PAC 6 clicks Basic Mobility Inpatient Short Form: Raw Score: 21 Standardized Score: 50.25 CMS Score: 28.97% Tinetti Gait Score 9/12 TherEx, LAQ, shoulder flexion, hip flexion, ankle pumps all x 10 Informed Consent/Education: Patient instructed in purpose of PT consult and plan of care. Assessment: Patient is a 58 year old male referred to physical therapy services with the diagnosis of UTI and confusion. Patient presents with clinical signs and symptoms consistent with this diagnosis, as demonstrated by the following impairment level findings: Confusion, assistance needed with transfers and gait, ambulation intolerance. Impairments are contributing to the following functional limitations: AMPAC score. 28.97% Patient is assessed as a X Moderate [id number] complexity based on the following: History: As described above Examination: As described above Presentation:Evolving Decision Making: Moderate based on AMPAC of 28.97 Physical Therapy services are required for this patient in order to address and remediate his remaining functional limitations that are preventing him from achieving baseline functional level. Goals: Goals X1 week 1. Supine-Sit Independent 2. Sit-Supine Independent 3. Sit-Stand Independent 5. Bed-Chair Independent 6. Chair-Bed Independent 7. Gait Independent up to 300 feet Plan of Care/Treatment Plan: 1-2x/day, 7 days/week x 1 week. Plan of care has been reviewed with the CREDIT VERIFIER providing the service under Physical Therapy direction. Initiate Physical Therapy intervention for strengthening, bed mobility, transfers, gait, stairs, balance training, use of assistive device. DISCHARGE RECOMMENDATIONS: To home in care of pediatric acute care unit nurse once medically stable TREATMENT CODE/TIME: Moderate complexity initial evaluation [id number] 8:10 to 8:35 25 minutes [facility]
--- NOTE | 2019-04-19 10:01 | W.PM.DS.N ---
Date of service: 04/19/19 Time of Service: 10:01 DS: Diagnosis Discharge Diagnosis (1) UTI (urinary tract infection): Start date: 04/19/19 Start time: 10:01 Status: Acute Asessment and Plan: Appears to be back to baseline. Some concern for BPH, will continue flomax at home with follow up appt for Dr. Ayala. Urine cx grew klebsiella pneumonia with pansensitivity. Will send home with 5 day course antibiotics to finish 7 day course for complicated UTI. afebrile, Blood cx NGTD (2) Encephalopathy acute: Start date: 04/19/19 Start time: 10:03 Status: Acute Asessment and Plan: Resolved. In setting of UTI (3) Epilepsy, unspecified, intractable, without status epilepticus: Status: Chronic (4) Cerebral palsy: Status: Chronic (5) IFG (impaired fasting glucose): Status: Chronic (6) DVT prophylaxis: Status: Acute Discharge Plan Disposition Patient Disposition: HOME Condition: Improving Discharge Details Chief Complaint: GenMedical Clinical Impression: Hallucinations, UTI (urinary tract infection), Fever, Gait instability Reason For Visit: HALLUCINATIONS, UTI, FEVER, GAIT IMBALANCE Admit Date/Time: 04/17/19 11:00 Admit Provider: Vineet Obrien Attending Provider: Vineet Obrien Primary Care Provider: Sis Roman ED Provider: Raysa Lopez Hospital Course Hospital Course: 58 y.o male with PMH of Cerebral palsy, Epilepsy, and hyperlipidemia admitted from [facility] ED for AMS/Hallucination due to UTI. Initially patient was seen in ED and sent home with bactrim, he returned the next day with worsening symptoms, impaired gait imbalance and hallucinations. He was admitted to m/s for further management. There was also concern for fall during middle of the night OUTPATIENT PSYCHIATRIST. Imaging in ED unremarkable except cannot exclude new rib fracture, unlikely as patient is not presenting in pain, no SOB or pain upon palpations. Multiple bruised areas. Over the course of treatment he was started on ceftriaxone. Within 24 hours mental status returned to baseline. Gait was improved and he is looking and feeling better. There was concern for bph following straight cath insertion due to difficulty with insertion and hematuria following attempt. Patient was started on flomax and will need follow up as an outpatient with urology. Blood cultures NGTD. Urine culture from 04/16 with klebsiella pneumonia pansensitivity, bactrim indeterminant, likely why patient did not feel better on initial medication. Will send home with 5 day dose of levquin to complete a total course of 7 days of antibiotics for complicated UTI. No seizure activity while in the hospital to suggest that the cause of fall. Reasonable to say fall from impaired gait due to UTI. Today he is looking well. Denies pain, he is being discharged home. Home Meds and New Rx's Prescriptions: New tamsulosin 0.4 mg Capsule 0.4 mg PO DAILY Qty: 14 RF: 0 levofloxacin [Levaquin] 750 mg tablet 750 mg PO DAILY Qty: 5 RF: 0 Continued albuterol sulfate 90 mcg/actuation HFA aerosol inhaler 1 - 2 puff IH Q4H PRN (Reason: shortness of breath or wheezing) Qty: 1 RF: 0 Spacer 1 unit miscellaneous .Q4-6H PRN (Reason: To use with inhaler) Qty: 1 RF: 0 lamotrigine 100 mg tablet 100 mg PO DIRECTED Qty: 270 RF: 3 zonisamide 100 mg capsule 300 mg PO HS Qty: 270 RF: 3 citalopram [Celexa] 40 MG tablet 30 mg PO DAILY RF: 0 ibuprofen 200 MG capsule 200 mg PO PRN RF: 0 acetaminophen 325 MG tablet 325 mg PO PRN PRNQty: 2 RF: 0 Buspirone HCl 5 MG tablet 5 mg PO BID RF: 0 (DME) Disposable Brief Jumbo X-Large 1 EACH misc 1 ea Miscellaneous BID Qty: 200 RF: 3 benzonatate 100 mg capsule 100 mg PO HS PRN (Reason: cough) Qty: 90 RF: 3 calcium carbonate-vitamin D3 [Calcium 500 With D] 500 mg(1,250mg) -400 unit tablet 1 tab PO DAILY Qty: 90 RF: 3 ESSENTIAL Daily 18-0.4 mg tablet 1 tab PO DAILY Qty: 90 RF: 3 levetiracetam 750 mg tablet 1,500 mg PO BID Qty: 360 RF: 3 Discontinued sulfamethoxazole-trimethoprim [Bactrim DS] 800-160 mg tablet 1 tab PO BID Qty: 6 RF: 0 Discharge Instructions Instructions: Benign Prostatic Hypertrophy (DC), Urinary Tract Infection in Men (DC), Epilepsy (DC) Additional Instructions: Follow up with your primary provider in 1-2 weeks Take a probiotic daily x 30 days. You have been started on levaquin take 1 a day for 5 days You have also been started on flomax for urinary retention, you should follow up with Dr. Ayala Urologist for further management. Stand Alone Forms: Nursing Discharge Form Referrals: Jeff Mroe DO [OSTEOPATHIC DOCTOR] - 04/23/19 11:00 am Activity:: Activity as Tolerated Equipment/Supplies:: No Equipment Needed Diet:: As Tolerated Discharge Orders Discharge Orders: Discharge Order (Routine); Ordered 04/19/19 Ordered By: Nanci Crow DS: Summary Status at Discharge Functional status at discharge: independent ambulation Overall status at discharge: patient is back to baseline Mental Status: other Speech and Movement: speech and movement normal Mood: congruent mood and other Affect: normal affect Exam Narrative Exam Narrative: Const: Altered, looks stated age, sitting up in chair. Smiling and pleasant. HENMT: Normocephalic, appears to be a hard lump on right side of throat, almost as if healed broken clavicle Eyes: PERRLA, EOMI Neck:no goiter, lymphedema or enlarged thyroid Chest: normal appearance Resp: even, unlabored, LSCTB Cardio: RRR, no murmur appreciated GI: soft nontender, BSAQ Back: no CVA tenderness Skin: abraision to forehead, left knee, multiple spots of bruising to left knee and thigh Neuro: confused at this time Extrem: FROM, no clubbing, cyanosis or edema Psych: pleasant. Psych Mental Status: other Speech and Movement: speech and movement normal Mood: congruent mood and other Affect: normal affect DS: Data Vitals/I&O Vitals and I&O: Vital Signs Temperature 36.5 C 04/19/19 07:30 Temperature Source Tympanic 04/19/19 07:30 Pulse 58 L 04/19/19 07:30 Pulse Rhythm Regular 04/18/19 01:38 Pulse 104 H 04/17/19 09:21 Respiratory Rate 19 04/19/19 07:30 Respiratory Effort Non-Labored 04/19/19 01:03 Respiratory Depth Normal 04/19/19 01:03 Respiratory Pattern Normal 04/19/19 01:03 Blood Pressure 149/70 H 04/19/19 07:30 Blood Pressure Mean 76 04/17/19 09:16 Blood Pressure Position Supine 04/17/19 08:06 Pulse Oximetry 95 04/19/19 07:30 Oxygen Delivery Method Room Air 04/19/19 07:30 Oxygen Flow Rate 0 04/19/19 07:30 Pain Level 5 04/19/19 07:30 Intake & Output 04/18/19 04/18/19 04/19/19 11:59 23:59 11:59 Intake Total 500 / 500 360 / 360 Output Total 1572 / 2472 900 / 2472 400 / 400 Balance -107 / -1971 -900 / -1971 -40 / -40 Intake: Oral 500 / 500 360 / 360 Output: Urine 1400 / 2300 900 / 2300 400 / 400 Post Void Residual 172 / 172 Other: Urine Color [place] Urine Appearance Clear Clear Clear Urine Odor None Normal Comment orange from the pyridium Stool Size Small Stool Characteristics Liquid Brown Voiding Methods Toilet Toilet Toilet Data Completed and Pending Completed studies during hospitalization [Text1]: COMPARISON: XR CHEST 03/27/2017 FINDINGS: Limitations: The study is technically limited by breathing motion artifact. Lungs: There is bilateral dependent atelectasis. Pleural space: No pleural effusion or pneumothorax. Heart: The heart is not enlarged. No pericardial effusion. Pulmonary arteries: No pulmonary embolism. Aorta: No thoracic aortic aneurysm or dissection. Great vessels off aortic arch: No major aortic branch vessel stenosis or occlusion. Lymph nodes: No pathologically enlarged lymph nodes. Bones/joints: Multiple bilateral old, healed rib fractures. Cannot exclude an acute rib or sternal fracture due to the motion artifact. Multilevel bridging osteophytes in the thoracic spine. Soft tissues: No acute soft tissue abnormality. IMPRESSION: 1. Bilateral atelectasis. No pneumonia otherwise. 2. Cannot exclude a nondisplaced fracture given technical limitations. COMPARISON: CT HEAD WITHOUT CONTRAST 07/21/2015 11:30 AM FINDINGS: Limitations: Beam hardening artifact. Brain: No acute brain parenchymal abnormality. No intracranial hemorrhage. No extraaxial fluid collections. There is mild diffuse cerebral atrophy. There are mild white matter low attenuation changes in both cerebral hemispheres likely related to chronic small vessel disease. Ventricles: No hydrocephalus. Bones/joints: No calvarial fracture. Sinuses: The visualized paranasal sinuses are aerated. Mastoid air cells: The visualized mastoid air cells are aerated. Soft tissues: No acute soft tissue abnormality. IMPRESSION: No acute intracranial abnormality. PROCEDURE INFORMATION: Exam: CT Thoracic Spine Without Contrast Exam date and time: 04/17/2019 8:30 AM Age: 58 years old Clinical history: Other: S/P fall, fever, R/O pneumonia/pyelonephritis TECHNIQUE: Imaging protocol: Computed tomography images of the thoracic spine without contrast. Radiation optimization: All CT scans at this facility use at least one of these dose optimization techniques: automated exposure control; mA and/or kV adjustment per patient size (includes targeted exams where dose is matched to clinical indication); or iterative reconstruction. COMPARISON: No relevant prior studies available. FINDINGS: Vertebrae: The lumbar vertebral bodies maintain height and alignment. The facets align normally. No acute fracture. There is a hemangioma in the T12 vertebral body. Discs/Spinal canal/Neural foramina: There is multilevel disc degeneration. Soft tissues: No paraspinal hematoma. IMPRESSION: No acute osseous abnormality. Labs on day of discharge: Labs from last 24 hours 04/19/19 04/19/19 06:05 06:05 WBC 7.47 RBC 4.45 L Hgb 12.9 L Hct 39.0 L MCV 87.6 MCH 29.0 MCHC 33.1 RDW 14.3 H Plt Count 425 H MPV 8.9 Sodium 143 Potassium 3.4 L Chloride 107 Carbon Dioxide 24.6 Anion Gap 11.4 H BUN 12 Creatinine 1.07 Estimated GFR/1.73 m2 >= 60.00 Glucose 89 Calcium 8.4 L Preliminary micro results at discharge 04/17/19 09:22 Blood Culture - Preliminary Blood NO GROWTH 24 HOURS 04/17/19 09:22 Blood Culture - Preliminary Blood NO GROWTH 24 HOURS [facility] Medical History Cerebral palsy (Chronic) Chronic rhinitis (Chronic 06/27/11) Epilepsy, unspecified, intractable, without status epilepticus (Chronic) Hyperlipidemia (Chronic 06/12/17) 08/2018 labs: 10-year ASCVD risk = ~5.5% --> no statin indicated at this time IFG (impaired fasting glucose) (Chronic 06/12/17) Osteoporosis (Chronic) 02/03/2018 2-year f/u DEXA (s/p starting Reclast): stable, some improvement 06/2018: Reclast infusions 2016, , & 19 - d/c Reclast and restart PRN pending f/u DEXA scans or fractures Subclinical hypothyroidism (Chronic 11/09/15) Synovitis of knee (Resolved 08/13/13) Unspecified disorder of liver (Chronic 06/27/11) Hemangioma right lobe liver on CT 12/05/2011 Surgical History Appendectomy (Resolved) Arthroplasty of knee (Resolved) H/O elbow surgery (Chronic) Laryngoscopy w/ removal of foreign body (Resolved) Family History Sister , Melanoma Neoplasm Melanoma Sister Neoplasm Breast CA Brother No problems noted. Social History Smoking/Tobacco Use Status: Never Alcohol Intake: never Drug use: Never Substance use type: does not use Caregiver/Support person: Yes (Mane) Household members: other Details: Caregiver, caregiver's , daughter, grandchild Pets and animals: Yes Pets and animals: dog(s) What type of physical activity do you participate in: other Details: Stairs Frequency: daily Seatbelt use: always Water heater temp set <120 deg: Yes Working smoke detector in home: Yes Fire extinguisher in home: Yes Carbon monox detector in home: Yes Firearms in home: No Do you feel safe at home: Yes Do you feel safe in your relationship?: Yes Additional Social history: He is on disability. He lives with his caregiver Milena Presley (Zanna) (since early ? longer?). Funding Specialist is Denis Melara. No smoking, ETOH, or illicit drug use.
--- NOTE | 2019-04-19 11:11 | W.NUTCONSULT ---
Date of service: 04/19/19 Time of Service: 11:11 Nutritional Consult ASSESSMENT: 58 year old male, admitted for UTI, encephalopathy with diagnosis of cerebral palsy and dysphagia. Nursing reports to d/c today. Following Consistent carb diet with adequate intake. Nursing reports tolerating regular meal plan without issues. Not considered at nutritional risk. MONITORING AND EVALUATION: po intake and weight Time Spent in Nutritional Counseling and Treatment: 0 time spent face to face
--- NOTE | 2019-04-19 15:28 | PDOC.CMDIS ---
- If Service Date Differs Date of service: 04/19/19 Time of Service: 15:28 LACE Index Scoring Tool - Questions: Length of Stay (in days): 2 Acuity (Admit via E.D.?): Yes Comorbidities: Connective Tissue Disease E.D. Visits: 2 - Answers: Total Score: 10 Risk of Readmission: High Risk Care Management Discharge Reason for Hospitalization: Hallucinations, UTI, Fever, Gait Imbalance Discharge Plan: Jose M will return home, to his exterminator termite home provider later today. He will transport via private vehicle with his providers. Jose M will follow up with his PCP and discharge plan of care. Patient/Family Education Needs: Discharge plan, limitations, follow up plan, Ask me Three.
--- NOTE | 2019-04-20 09:26 | INDS_ITS ---
Date of service: 04/20/19 Time of Service: 09:26 PT Notes Visit Reasons: HALLUCINATIONS, UTI, FEVER, GAIT IMBALANCE Inpatient Physical Therapy Discharge Summary Dates: 04/20/2019 Dates of Service: 04/19/2019 only This is a clinical summary of care provided on the duration of dates listed above. No charge was made in the completion of this documentation. Referring Doctor: Nanci Crow NP PT Orders: PT CONSULT: Evaluate and Treat Precautions: Standard Patient Profile/Admitting Diagnosis: Orders received for this 58 year old male with a hx of cognitive delay. He was seen in the ED a few days ago and diagnosed with UTI and sent home with outpatient antibiotics. He returned later to the ED with increasing weakness and confusion and possibility of a fall although not witnessed. HE has been admitted for monitoring and for medical management. OT evaluation was completed right before this evaluation. PMHX: Cerebral palsy, epilepsy, dysphagia and Hyperlipidemia Social History/Home Situation: Lives at home with the assistance of caregiver Current Functional Limitations: Ambulation limits on distance Equipment Owned/DME: N/A Subjective: NT Objective: General Observation: Confused but pleasant male sitting up in chair having breakfast. He has notable bruising patterns on his left arm anterior aspect, and left knee kisha patellar area. Mental Status: Oriented to person, slightly oriented to place and no concept of time. Pain: Neck, back, knees bilaterally, and shoulders Vital Signs: stable per nursing. 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 Motor control intact through functional myotomes and patient intact to proprioception and kinesthetic awareness Bed Mobility/Transfers: Patient does require a whole lot of assistance. He is mainly confused and needs hand hold contact guard for guidance and for safety direction. Gait: Ambulation to 40 feet with CGA no device needed Balance: Static Sitting: Normal Dynamic Sitting: Good Static Standing: Good Dynamic Standing: Fair Assessment: Patient is a 58 year old male referred to physical therapy services with the diagnosis of UTI and confusion. Patient presents with clinical signs and symptoms consistent with this diagnosis, as demonstrated by the following impairment level findings: Confusion, assistance needed with transfers and gait, ambulation intolerance. Impairments are contributing to the following functional limitations: AMPAC score. 28.97% Goals: Goals X1 week 1. Supine-Sit Independent NOT MET 2. Sit-Supine Independent NOT MET 3. Sit-Stand Independent NOT MET 5. Bed-Chair Independent NOT MET 6. Chair-Bed Independent NOT MET 7. Gait Independent up to 300 feet NOT MET DISCHARGE RECOMMENDATIONS: To home in care of administrator health care facility once medically stable TREATMENT CODE/TIME: NC. Thank you very much for this referral. Meredith Connors PT, DPT, CLT [facility] Inpatient PT at [facility]
[2019-04-20 16:07] LABS: Levetiracetam <2.0 mcg/mL
[2019-04-21 07:19] LABS: Zonisamide 24 mcg/mL (10-40)
== END 2019-04-19 13:15 | disposition home or self-care (01) ==
LOC: ER 11:23 → MS 11:57
PROVIDERS: Nurse Practitioner Family; Admitting Provider Family Medicine; Emergency Provider Physician Assistant; PCP Nurse Practitioner Family; Visit Provider Family Medicine
DX: N39.0 Urinary tract infection, site not specified (principal); B96.1 Klebsiella pneumoniae [K. pneumoniae] as the cause of diseases classified elsewhere; G93.49 Other encephalopathy; G40.919 Epilepsy, unspecified, intractable, without status epilepticus; G80.8 Other cerebral palsy; R73.01 Impaired fasting glucose; R26.81 Unsteadiness on feet; N40.0 Benign prostatic hyperplasia without lower urinary tract symptoms; E78.5 Hyperlipidemia, unspecified; R13.10 Dysphagia, unspecified
CPT/HCPCS: 36415; 74177; 80048; 80053; 80175; 80203; 83690; 85027; 87040; 93005; 96361; 96365; 97162; 97535; 99223; 99233; 99239; 99285; J1650; 70450; 71260; 72125; 72128; 72131; 80164; 80177; 81003; 81015; 83605; 83735; 84484; 85025; 87086; 93010; 99217; 99220; 99226; G0378; J0696; J1956; J3490

== ENCOUNTER → 2019-04-23 13:05 | Outpatient (BNVA) | payer MEDICARE, MEDICAID, SELFPAY | PROVIDERS: PCP Nurse Practitioner Family; Referring Provider Nurse Practitioner Family; Visit Provider Urology | DX: N39.0 Urinary tract infection, site not specified (principal); Q60.0 Renal agenesis, unilateral | CPT/HCPCS: 99203; 99214 ==

== ENCOUNTER 2019-04-25 15:11 | Outpatient (REF) | payer MEDICARE, MEDICAID, SELFPAY ==
[2019-04-26 10:30] LABS: Bilirubin Negative (Negative); Blood Negative (Negative); Clarity Sl Cloudy (Clear); Glucose Negative (Negative); Ketones Negative (Negative); Leukocyte Esterase Negative (Negative); Nitrite Negative (Negative); Specific Gravity 1.015 (1.005-1.025); Urobilinogen 0.2 EU/dL (Up TO 0.2); pH 7.5 (5-8)
== END 2019-04-25 15:31 ==
LOC: LBN 15:11
PROVIDERS: PCP Nurse Practitioner Family; Visit Provider Urology
DX: N39.0 Urinary tract infection, site not specified (principal)
CPT/HCPCS: 81003; 87086